=== PATIENT | female | born 1945 | race Hispanic/Latino ===

== ENCOUNTER 2019-06-16 09:14 | Emergency (ER) | payer OTHER ==
--- OUTSIDE RECORDS SUMMARY | 2019-06-16 09:15 | XMS REPORT ---
:1945 Author Organization eClinicalWorks Care Team Providers Name Role Phone Dexter Iván Provider Role Unavailable Allergies, Adverse Reactions, Alerts Substance Reaction Event Type N.K.D.A. Info Not Available Non Drug Allergy Problems Problem Type Condition Code Onset Dates Condition Status Assessment Body mass index (BMI) of 40.0-44.9 Z68.41 Active in adult Assessment Primary osteoarthritis of left knee M17.12 Active Assessment Left sided sciatica M54.32 Active Assessment Morbid (severe) obesity due to E66.01 Active excess calories Problem Morbid (severe) obesity due to E66.01 Active excess calories Problem Primary osteoarthritis of left knee M17.12 Active Problem Pain, joint, knee, left M25.562 Active Assessment Pain, joint, knee, left M25.562 Active Problem Left sided sciatica M54.32 Active Problem Body mass index (BMI) of 40.0-44.9 Z68.41 Active in adult Medications Medication Code System Code Instructions Start Date End Date Status Dosage Amlodipine ND 0 Active not defined Besylate Lisinopril [facility] 33690-797 Active not defined 1-01 Meclizine HCl [facility] 59644-627 Active not defined 6-10 Omeprazole [facility] 37128-338 Active not defined 2-55 Results No Known Results Summary Purpose eClinicalWorks Submission
--- OUTSIDE RECORDS SUMMARY | 2019-06-16 09:16 | XMS REPORT ---
:1945 Author Organization eClinicalWorks Care Team Providers Name Role Phone Dexter Iván Provider Role Unavailable Allergies, Adverse Reactions, Alerts Substance Reaction Event Type N.K.D.A. Info Not Available Non Drug Allergy Problems Problem Type Condition Code Onset Dates Condition Status Assessment Left sided sciatica M54.32 Active Assessment Pain, joint, knee, left M25.562 Active Assessment Primary osteoarthritis of left knee M17.12 Active Assessment Morbid (severe) obesity due to E66.01 Active excess calories Assessment Body mass index (BMI) of 40.0-44.9 Z68.41 Active in adult Problem Morbid (severe) obesity due to E66.01 Active excess calories Problem Primary osteoarthritis of left knee M17.12 Active Problem Pain, joint, knee, left M25.562 Active Assessment Pain in joint of left hip M25.552 Active Problem Left sided sciatica M54.32 Active Problem Body mass index (BMI) of 40.0-44.9 Z68.41 Active in adult Medications Medication Code System Code Instructions Start Date End Date Status Dosage Omeprazole [facility] 09740-976 Active not defined 2-55 Lisinopril [facility] 01432-530 Active not defined 1-01 Meclizine HCl [facility] 65311-334 Active not defined 6-10 Amlodipine ND 0 Active not defined Besylate Results No Known Results Summary Purpose eClinicalWorks Submission
[2019-06-16] MEDS ORDERED: MECLIZINE HCL 12.5 MG TAB ONE (09:56)
[2019-06-16] MEDS ORDERED: NA CHLORIDE 0.9% 1,000 ML ONE (09:57)
[2019-06-16] MEDS ORDERED: ONDANSETRON 4 MG/2 ML VIAL ONE (09:57)
[2019-06-16 10:05] LABS: Absolute Lymphocytes (CBC) 1.8 K/uL (0.7-4.9); Basophils % 0.9 % (0-1.3); Hematocrit 38.5 % (36.0-45.0); Lymphocytes % 39.2 % (15.3-44.8); MPV 9.5 fL (7.6-11.3); RBC Red Blood Cell Count 4.46 M/uL (3.86-4.86)
[2019-06-16 10:32] LABS: Protime INR 1.01
[2019-06-16 10:46] LABS: ALT/SGPT 18 U/L (12-78); AST/SGOT 21 U/L (15-37); Albumin 3.1 g/dL (3.4-5.0); Alkaline Phosphatase 81 U/L (45-117); BUN Blood Urea Nitrogen 23 mg/dL (7-18); Bicarbonate 26 mmol/L (21-32); Bilirubin Direct 0.1 mg/dL (0-0.2); Bilirubin Total 0.4 mg/dL (0.2-1.0); CKMB Creatine Kinase MB < 1.0 ng/mL (0.3-3.6); Creatine Phosphokinase 84 U/L (26-192); Glucose Level 105 mg/dL (74-106); Lipase 75 U/L (73-393); Magnesium 1.8 mg/dL (1.8-2.4); Potassium 4.3 mmol/L (3.5-5.1); Protein, Total 6.8 g/dL (6.4-8.2); Sodium Level 142 mmol/L (136-145); Troponin (Emerg Dept Use Only) < 0.02 ng/mL (0.0-0.045)
[2019-06-16] MEDS ORDERED: PROMETHAZINE INJ 25 MG/ML AMP ONE (10:47)
[2019-06-16] MEDS ORDERED: DIAZEPAM 10 MG/2 ML INJ SYRINGE ONE (10:48)
--- NOTE | 2019-06-16 11:19 | RAD REPORT ---
EXAM DESCRIPTION: CT - Head Brain Wo Cont - 06/16/2019 11:08 am CLINICAL HISTORY: Hypotension, weakness and dizziness, syncope, COMPARISON: CT head January 2015 TECHNIQUE: Axial 5 mm thick images of the head were obtained without IV contrast. All CT scans are performed using dose optimization technique as appropriate and may include automated exposure control or mA/KV adjustment according to patient size. FINDINGS: No intracranial hemorrhage, mass, edema or shift of mid-line structures. No acute infarcti on changes seen. No cortical edema or sulcal effacement. Little to no atrophy and chronic ischemic ch anges evident. Ventricles are normal. Intracranial findings are similar to comparison. Mastoid air cells are not pneumatized. Partially visualized paranasal sinuses are clear. No acute bony findings. IMPRESSION: Negative non-contrast CT head examination for acute finding No significant change from the 2014 comparison.
[2019-06-16 12:23] LABS: Urine Blood NEGATIVE (NEG); Urine Glucose NEGATIVE (NEG); Urine Specific Gravity 1.015 (1.005-1.030); Urine pH 7.5 (5.0-7.0)
[2019-06-16 12:24] LABS: Urine Protein NEGATIVE (NEG)
--- NOTE | 2019-06-16 12:28 | ER ---
Nurse's Notes [facility] Name: Brenda Madrid Age: 73 yrs Sex: Female : 1945 Arrival Date: 06/16/2019 Time: 09:16 Bed 3 Private MD: Franco Davis V Diagnosis: Cystitis, unspecified without hematuria Presentation: 06/16 09:22 Presenting complaint: Significant other states: pt started feeling bad about 30 minutes iw ago, was feeling like she was going to pass out and dizzy and she vomited, her BP was low at home. Transition of care: patient was not received from another setting of care. Onset of symptoms was June 16, 2019. Risk Assessment: Do you want to hurt yourself or someone else? Patient reports no desire to harm self or others. Initial Sepsis Screen: Does the patient meet any 2 criteria? No. Patient's initial sepsis screen is negative. Does the patient have a suspected source of infection? No. Patient's initial sepsis screen is negative. Care prior to arrival: None. 09:22 Method Of Arrival: Wheelchair iw 09:22 Acuity: RONALDO 2 iw Historical: - Allergies: 09:24 No Known Allergies; iw - Home Meds: 09:24 None [Active]; iw - PSHx: 09:24 ; Cholecystectomy; iw - Social history:: Patient/guardian denies using alcohol, street drugs, The patient lives with family. - Ebola Screening: : Patient negative for fever greater than or equal to 101.5 degrees Fahrenheit, and additional compatible Ebola Virus Disease symptoms Patient denies exposure to infectious person Patient denies travel to an Ebola-affected area in the 21 days before illness onset No symptoms or risks identified at this time. - Family history:: not pertinent. Screenin:48 Abuse screen: Denies threats or abuse. Nutritional screening: No deficits noted. em Tuberculosis screening: No symptoms or risk factors identified. Fall Risk None identified. Assessment: 09:50 General: Appears in no apparent distress. uncomfortable, Behavior is calm, cooperative, em Denies fever. Pain: Complains of pain in lumbar area Pain currently is 0 out of 10 on a pain scale. at worst was 10 out of 10 on a pain scale. Pain began 30 min ago. Neuro: Level of Consciousness is awake, alert, obeys commands, Oriented to person, place, time, situation, Appropriate for age Reports dizziness, a syncopal episode Denies headache. Cardiovascular: Capillary refill < 3 seconds Patient's skin is warm and dry. Rhythm is sinus rhythm. Respiratory: Airway is patent Respiratory effort is even, unlabored, Respiratory pattern is regular, symmetrical. GI: Reports nausea, vomiting, Patient currently denies abdominal pain. : Denies burning with urination. Derm: Skin is intact, is thin, Skin is pink, warm \T\ dry. Musculoskeletal: Capillary refill < 3 seconds, Range of motion: intact in all extremities. 10:54 Reassessment: Pt is drowsy after Phenergan and Valium administration. Resting with eyes aa5 closed, family at bedside. Side rails x 2. . 11:00 Reassessment: Patient appears in no apparent distress at this time. wheeled to CT via em stretcher. 12:00 Reassessment: Patient appears in no apparent distress at this time. Patient and/or em family updated on plan of care and expected duration. Pain level reassessed. Patient is alert, oriented x 3, equal unlabored respirations, skin warm/dry/pink. reports feeling better, requesting to go home. Vital Signs: 09:24 BP 120 / 52; Pulse 66; Resp 16; Pulse Ox 95% on R/A; Weight 99.34 kg; iw 10:50 BP 120 / 62; Pulse 69; Resp 18 S; Pulse Ox 97% on R/A; aa5 10:54 Resp 14 S; Pulse Ox 88% on R/A; aa5 10:55 Pulse Ox 94% on 4 lpm NC; aa5 12:00 BP 132 / 72; Pulse 65; Resp 18; Pulse Ox 100% on R/A; Pain 0/10; em ED Course: 09:16 Patient arrived in ED. mr 09:16 Franco Davis MD is Private Physician. mr 09:23 Triage completed. iw 09:27 Davina Lnog MD is Attending Physician. ma2 09:29 Bj Thomas, KEM is Primary Nurse. em 09:45 Initial lab(s) drawn, by me, sent to lab. Inserted saline lock: 22 gauge in right em forearm, using aseptic technique. Blood collected. 09:48 Arm band placed on. em 09:48 Patient has correct armband on for positive identification. Placed in gown. Bed in low em position. Call light in reach. Adult w/ patient. shelter monitor on. Pulse ox on. NIBP on. 11:08 CT Head Brain wo Cont In Process Unspecified. EDMS 12:38 No provider procedures requiring assistance completed. IV discontinued, intact, em bleeding controlled, No redness/swelling at site. Pressure dressing applied. Administered Medications: 10:00 Drug: NS 0.9% 1000 ml Route: IV; Rate: 1 bolus; Site: right forearm; em 10:01 Drug: Zofran 4 mg Route: IVP; Site: right forearm; em 10:22 Follow up: Response: No adverse reaction; Nausea unchanged em 10:22 Drug: Zofran 4 mg Route: IVP; Site: right forearm; em 10:49 Drug: Phenergan 25 mg Route: IVP; Site: right forearm; aa5 10:50 Drug: Valium 2 mg Route: IVP; Site: right forearm; aa5 10:52 Drug: Meclizine 50 mg Route: PO; aa5 Outcome: 12:27 Discharge ordered by . ma2 12:38 Discharged to home via wheelchair, with family. em 12:38 Condition: good 12:38 Discharge instructions given to patient, family, Instructed on discharge instructions, follow up and referral plans. medication usage, Demonstrated understanding of instructions, follow-up care, medications, Prescriptions given X 3. 12:41 Patient left the ED. em Signatures: Dispatcher [employer] WILBERTOKS MikeLilly Edgar, RN RN em Williams, Irene, RN RN iw Calderon, Audri, RN RN aa5 Alzahri, Mohammad, MD MD ma2
--- NOTE | 2019-06-16 12:28 | EDPHYS ---
Physician Documentation [facility] Name: Brenda Madrid Age: 73 yrs Sex: Female : 1945 Arrival Date: 06/16/2019 Time: 09:16 Bed 3 Private MD: Franco Davis V ED Physician Davina Long HPI: 06/16 12:26 This 73 yrs old Female presents to ER via Wheelchair with complaints of Blood ma2 Pressure Problem. 12:26 Onset: The symptoms/episode began/occurred gradually, 2 hour(s) ago. Severity of ma2 symptoms: At their worst the symptoms were mild in the emergency department the symptoms have resolved. The patient has experienced similar episodes in the past. Historical: - Allergies: :24 No Known Allergies; iw - Home Meds: :24 None [Active]; iw - PSHx: :24 ; Cholecystectomy; iw - Social history:: Patient/guardian denies using alcohol, street drugs, The patient lives with family. - Ebola Screening: : Patient negative for fever greater than or equal to 101.5 degrees Fahrenheit, and additional compatible Ebola Virus Disease symptoms Patient denies exposure to infectious person Patient denies travel to an Ebola-affected area in the 21 days before illness onset No symptoms or risks identified at this time. - Family history:: not pertinent. ROS: 12:26 Constitutional: Negative for fever, chills, and weight loss. ma2 12:26 All other systems are negative. Exam: 12:26 Constitutional: This is a well developed, well nourished patient who is awake, alert, ma2 and in no acute distress. Head/Face: Normocephalic, atraumatic. Eyes: Pupils equal round and reactive to light, extra-ocular motions intact. Lids and lashes normal. Conjunctiva and sclera are non-icteric and not injected. Cornea within normal limits. Periorbital areas with no swelling, redness, or edema. ENT: Nares patent. No nasal discharge, no septal abnormalities noted. Tympanic membranes are normal and external auditory canals are clear. Oropharynx with no redness, swelling, or masses, exudates, or evidence of obstruction, uvula midline. Mucous membranes moist. Neck: Trachea midline, no thyromegaly or masses palpated, and no cervical lymphadenopathy. Supple, full range of motion without nuchal rigidity, or vertebral point tenderness. No Meningismus. Chest/axilla: Normal chest wall appearance and motion. Nontender with no deformity. No lesions are appreciated. Cardiovascular: Regular rate and rhythm with a normal S1 and S2. No gallops, murmurs, or rubs. Normal PMI, no JVD. No pulse deficits. Respiratory: Lungs have equal breath sounds bilaterally, clear to auscultation and percussion. No rales, rhonchi or wheezes noted. No increased work of breathing, no retractions or nasal flaring. Abdomen/GI: Soft, non-tender, with normal bowel sounds. No distension or tympany. No guarding or rebound. No evidence of tenderness throughout. MS/ Extremity: Pulses equal, no cyanosis. Neurovascular intact. Full, normal range of motion. Neuro: Awake and alert, GCS 15, oriented to person, place, time, and situation. Cranial nerves II-XII grossly intact. Motor strength 5/5 in all extremities. Sensory grossly intact. Cerebellar exam normal. Normal gait. Vital Signs: 09:24 BP 120 / 52; Pulse 66; Resp 16; Pulse Ox 95% on R/A; Weight 99.34 kg; iw 10:50 BP 120 / 62; Pulse 69; Resp 18 S; Pulse Ox 97% on R/A; aa5 10:54 Resp 14 S; Pulse Ox 88% on R/A; aa5 10:55 Pulse Ox 94% on 4 lpm NC; aa5 12:00 BP 132 / 72; Pulse 65; Resp 18; Pulse Ox 100% on R/A; Pain 0/10; em MDM: 09:27 Patient medically screened. ma2 12:26 Differential Diagnosis vertigo and headache and low bp, felt better, sympotms resolvec ma2 . Data reviewed: vital signs, nurses notes. Counseling: I had a detailed discussion with the patient and/or guardian regarding: the historical points, exam findings, and any diagnostic results supporting the discharge/admit diagnosis, the presence of at least one elevated blood pressure reading (>120/80) during this emergency department visit, the need for outpatient follow up. Response to treatment: the patient's symptoms have markedly improved after treatment. 06/16 09:49 Order name: Basic Metabolic Panel; Complete Time: 11:44 ma2 19 09:49 Order name: CBC with Diff; Complete Time: 10:42 06/16 09:49 Order name: Ckmb; Complete Time: 11:44 06/16 09:49 Order name: CPK; Complete Time: 11:44 06/16 09:49 Order name: Hepatic Function; Complete Time: 11:44 06/16 09:49 Order name: Lipase; Complete Time: 11:44 06/16 09:49 Order name: CT Head Brain wo Cont; Complete Time: 11:44 06/16 09:49 Order name: Magnesium; Complete Time: 11:44 06/16 09:49 Order name: Protime (+inr); Complete Time: 10:42 06/16 09:49 Order name: Ptt, Activated; Complete Time: 10:42 06/16 09:49 Order name: Troponin (emerg Dept Use Only); Complete Time: 11:44 06/16 12:20 Order name: Urine Dipstick--Ancillary (enter results) lt1 06/16 09:49 Order name: EKG; Complete Time: 09:50 06/16 09:49 Order name: Cardiac monitoring; Complete Time: 09:50 06/16 09:49 Order name: EKG - Nurse/Tech; Complete Time: 09:50 06/16 09:49 Order name: IV Saline Lock; Complete Time: 09:50 06/16 09:49 Order name: Labs collected and sent; Complete Time: 09:50 06/16 09:49 Order name: NPO; Complete Time: 09:50 06/16 09:49 Order name: O2 Per Protocol; Complete Time: 09:50 06/16 09:49 Order name: O2 Sat Monitoring; Complete Time: 09:50 ma Administered Medications: 10:00 Drug: NS 0.9% 1000 ml Route: IV; Rate: 1 bolus; Site: right forearm; em 10:01 Drug: Zofran 4 mg Route: IVP; Site: right forearm; em 10:22 Follow up: Response: No adverse reaction; Nausea unchanged em 10:22 Drug: Zofran 4 mg Route: IVP; Site: right forearm; em 10:49 Drug: Phenergan 25 mg Route: IVP; Site: right forearm; aa5 10:50 Drug: Valium 2 mg Route: IVP; Site: right forearm; aa5 10:52 Drug: Meclizine 50 mg Route: PO; aa5 Disposition: 06/16/19 12:27 Discharged to Home. Impression: Cystitis, unspecified without hematuria. - Condition is Stable. - Discharge Instructions: Urinary Tract Infection, Adult. - Prescriptions for Meclizine 25 mg Oral Tablet - take 1 tablet by ORAL route every 8 hours As needed; 30 tablet. Zofran 4 mg Oral Tablet - take 1 tablet by ORAL route every 12 hours As needed; 20 tablet. Bactrim DS 800- 160 mg Oral Tablet - take 1 tablet by ORAL route every 12 hours for 5 days; 10 tablet. - Medication Reconciliation Form, Thank You Letter, Antibiotic Education, Prescription Opioid Use form. - Follow up: Private Physician; When: Tomorrow; Reason: Continuance of care. Signatures: Dispatcher [employer] Bj Smith RN RN em Williams, Irene, RN RN iw Calderon, Audri, RN RN aa5 Davina Long MD MD [id number] Corrections: (The following items were deleted from the chart) 11:57 09:49 Urine Dipstick-Ancillary ordered. [facility] 11:57 11:44 Price ordered. [facility] 12:41 12:27 06/16/2019 12:27 Discharged to Home. Impression: Cystitis, unspecified without em hematuria. Condition is Stable. Forms are Medication Reconciliation Form, Thank You Letter, Antibiotic Education, Prescription Opioid Use. Follow up: Private Physician; When: Tomorrow; Reason: Continuance of care. ma
[2019-06-16 13:27] VITALS: BP 132/72; O2SAT 100
--- NOTE | 2019-06-17 08:49 | EKG ---
Test Date: 2019-06-16 Test Time: 09:44:18 Court Magistrate: BEV MEASUREMENT RESULTS: Intervals: Rate: 59 DC: 156 QRSD: 84 QT: 428 QTc: 423 [place]: P: 58 DC: 156 QRS: 7 T: 44 INTERPRETIVE STATEMENTS: Sinus bradycardia Otherwise normal ECG Compared to ECG 02/16/2015 06:51:55 Sinus rhythm no longer present Electronically Signed On 06-17-19 08:48:36 [employer] by Shane Velazquez
== END 2019-06-16 12:41 | disposition home or self-care (01) ==
LOC: ER 09:14
DX: N30.90 Cystitis, unspecified without hematuria (principal)
CPT/HCPCS: 93005; 85025; 80048; 36415; 83735; 82550; 85610; 80076; 85730; 81003; 84484; 82553; 83690; 70450; 96375; 96374; 99284; J2550; J3360; J7030; J2405

== ENCOUNTER 2019-06-19 15:59 | Observation (INO) | payer OTHER ==
--- OUTSIDE RECORDS SUMMARY | 2019-06-19 16:22 | XMS REPORT ---
[...] Start Date End Date Status Dosage Omeprazole [facility] 08572-350 Active not defined 2-55 Lisinopril [facility] 33041-895 Active not defined 1-01 Meclizine HCl [facility] 78861-575 Active not defined 6-10 Amlodipine ND 0 Active not defined Besylate Results No Known Results Summary Purpose eClinicalWorks Submission
--- OUTSIDE RECORDS SUMMARY | 2019-06-19 16:22 | XMS REPORT ---
[...] ND 0 Active not defined Besylate Lisinopril [facility] 57631-520 Active not defined 1-01 Meclizine HCl [facility] 62997-441 Active not defined 6-10 Omeprazole [facility] 36056-311 Active not defined 2-55 Results No Known Results Summary Purpose eClinicalWorks Submission
[2019-06-19] MEDS ORDERED: DIPHENHYDRAMINE 25 MG TAB/CAP PO PRN (16:44)
[2019-06-19] MEDS ORDERED: LOPERAMIDE HCL 2 MG CAPSULE PO PRN (16:44)
[2019-06-19] MEDS ORDERED: ONDANSETRON 4 MG (ODT) TAB PO PRN (16:44)
[2019-06-19] MEDS ORDERED: POLYETHYL GLY 3350 17 GM/DOSE PO PRN (16:44)
[2019-06-19] MEDS ORDERED: ACETAMINOPHEN 325 MG TABLET PO PRN (16:44)
[2019-06-19 17:47] LABS: Absolute Lymphocytes (CBC) 1.6 K/uL (0.7-4.9); Basophils % 0.9 % (0-1.3); Hematocrit 38.6 % (36.0-45.0); Lymphocytes % 30.8 % (15.3-44.8); MPV 9.4 fL (7.6-11.3); RBC Red Blood Cell Count 4.47 M/uL (3.86-4.86)
[2019-06-19 18:28] LABS: BUN Blood Urea Nitrogen 18 mg/dL (7-18); Bicarbonate 22 mmol/L (21-32); Glucose Level 90 mg/dL (74-106); Magnesium 1.9 mg/dL (1.8-2.4); NT PRO-BNP 118 pg/mL (<125); Phosphorus 1.6 mg/dL (2.5-4.9); Potassium 3.8 mmol/L (3.5-5.1); Sodium Level 142 mmol/L (136-145); Troponin I < 0.02 ng/mL (0.0-0.045)
--- NOTE | 2019-06-19 19:21 | RAD REPORT ---
EXAM DESCRIPTION: CT - Chest For Pe Angio - 06/19/2019 6:56 pm CLINICAL HISTORY: dyspnea, chest pain COMPARISON: No comparisons TECHNIQUE: Dynamically enhanced 3 mm thick images of the chest were obtained during administration o f approximately 150mL Isovue 370 IV contrast. Coronal and oblique MIP reconstruction images were gene rated and reviewed. Exam utilizes a protocol to evaluate the pulmonary arterial tree. All CT scans are performed using dose optimization technique as appropriate and may include automated exposure control or mA/KV adjustment according to patient size. FINDINGS: No pulmonary emboli are identified. The aorta as imaged shows no acute or suspicious finding. No pericardial thickening or effusion. Mild cardiomegaly present. No infiltrate or mass in the lung parenchyma. No pleural effusion or pleural thickening. No mediastinal or hilar suspicious masses. No chest wall masses or abnormal axillary lymphadenopathy. IMPRESSION: No pulmonary emboli identified. Mild cardiomegaly is evident. No focal or acute lung parenchymal process seen.
[2019-06-19 19:30] LABS: Urine Appearance CLEAR; Urine Bilirubin NEGATIVE (NEG); Urine Blood NEGATIVE (NEG); Urine Color YELLOW; Urine Glucose NEGATIVE (NEG); Urine Protein NEGATIVE (NEG); Urine Specific Gravity 1.015 (1.005-1.030)
[2019-06-19 19:42] LABS: Urine Microscopic Reflex NO UMIC
[2019-06-19] MEDS ORDERED: PANTOPRAZOLE 40 MG INJ IVP ONE (20:01)
[2019-06-19] MEDS ORDERED: HYDROMORPHONE HCL 1 MG/ML INJ IV PRN (20:01)
[2019-06-19] MEDS ORDERED: HYDROMORPHONE HCL 1 MG/ML INJ IV ONE (20:02)
[2019-06-19] MEDS: carvediloL 6.25 MG TAB PO SCH (21:00)
[2019-06-19] MEDS: ENOXAPARIN 100 MG/ML SYR SQ SCH (21:06)
[2019-06-19 23:56] VITALS: BMI 38.8
[2019-06-20 07:08] LABS: Arterial Blood Carboxyhemoglob 1.1 % (0-1.5); Blood Gas Oxyhemoglobin 91.8 % (94-97); Blood O2 Saturation 93.5 % (92-98.5)
[2019-06-20] MEDS ORDERED: MECLIZINE HCL 12.5 MG TAB PO PRN (07:58)
[2019-06-20] MEDS: carvediloL 6.25 MG TAB PO SCH (09:05)
[2019-06-20] MEDS: ENOXAPARIN 100 MG/ML SYR SQ SCH (09:06)
--- NOTE | 2019-06-20 09:08 | RAD REPORT ---
EXAM DESCRIPTION: US - Extrem Venous W Compress [place] - 06/20/2019 8:51 am CLINICAL HISTORY: Leg pain and swelling COMPARISON: None. TECHNIQUE: Real-time sonographic evaluation of the bilateral lower extremity common femoral, superfi cial femoral, popliteal and posterior tibial veins was performed. FINDINGS: Normal compressibility, flow augmentation, phasic flow and spontaneous flow are identified in the left and right lower extremity common femoral, superficial femoral, popliteal and posterior t ibial veins. No intraluminal filling defects seen. IMPRESSION: No DVT in either lower extremity.
--- NOTE | 2019-06-20 09:19 | RAD REPORT ---
EXAM DESCRIPTION: CT - Abdomen Pelvis W Contrast - 06/20/2019 8:52 am CLINICAL HISTORY: FEVER , PAIN COMPARISON: CT ABD PELVIS W CONTRAST dated 02/28/2014 TECHNIQUE: Biphasic, helical CT imaging of the abdomen and pelvis was performed following 100 ml non -ionic IV contrast. Oral contrast was given. All CT scans are performed using dose optimization technique as appropriate and may include automated exposure control or mA/KV adjustment according to patient size. FINDINGS: No suspicious findings in the lung bases. Liver, spleen and pancreas show no suspicious findings. A few small low-density areas are present in the left lobe and inferior right lobe not clearly different from 2014. These are believed to be incid ental cysts. Gallbladder is absent. No biliary tree dilatation. Symmetric renal function is seen with no hydronephrosis or suspicious renal mass. No pyelonephritis o r acute parenchymal process. Contracted urinary bladder shows no suspicious finding. No adrenal abnor malities. Uterus and ovaries without suspicious finding. Small hiatal hernia is present. Contrast is present in the distal esophagus. This is probably reflux. No dilated large or small bowel. No active GI process seen. No free air, free fluid or inflammatory stranding. No peritoneal or retroperitoneal mass. A very small umbilical hernia is present similar to comparison. Asymmetric or prominent 2 centimeter oval area of increased soft tissue thickness is present along th e right labia majora or distal vaginal wall. This is slightly more prominent than 2014. CT assessment is limited in this region. Correlation can be made with CALCULATION CLERK examination. No suspicious bony findings. IMPRESSION: Contrast enhanced CT abdomen and pelvis showing no acute finding. Soft tissue mass or thickening along the distal right vaginal wall or right labia majora slightly mor e prominent than the 2014 study. This can be correlated with follow-up outpatient CALCULATION CLERK examination. Nonacute findings detailed in the body of the report.
--- NOTE | 2019-06-20 14:04 | ECHO ---
HEIGHT: 5 ft 0 in WEIGHT: 198 lb 12.8 oz DATE OF STUDY: 06/20/[address]: Franco Davis MD 2-DIMENSIONAL: YES M.MODE: YES DOPPLER: YES COLOR FLOW: YES TDS: NO PORTABLE: NO DEFINITY: NO BUBBLE STUDY: NO DIAGNOSIS: EDEMA/DYSPNEA CARDIAC HISTORY: CATHERIZATION: NO SURGERY: NO PROSTHETIC VALVE: NO PACEMAKER: NO MEASUREMENTS (cm) DIASTOLIC (NORMALS) SYSTOLIC (NORMALS) IVSd 1.0 (0.6-1.2) LA Diam 2.9 (1.9-4.0) LVEF 59% LVIDd 3.7 (3.5-5.7) LVIDs 2.5 (2.0-3.5) %FS 31% LVPWd 1.1 (0.6-1.2) Ao Diam 2.6 (2.0-3.7) 2 DIMENSIONAL ASSESSMENT: RIGHT ATRIUM: NORMAL LEFT ATRIUM: NORMAL RIGHT VENTRICLE: NORMAL LEFT VENTRICLE: NORMAL TRICUSPID VALVE: NORMAL MITRAL VALVE: NORMAL PULMONIC VALVE: NORMAL AORTIC VALVE: NORMAL PERICARDIAL EFFUSION: NONE AORTIC ROOT: NORMAL LEFT VENTRICULAR WALL MOTION: NORMAL DOPPLER/COLOR FLOW: NORMAL. COMMENTS: NORMAL 2D ECHO WITH DOPPLER. NO WALL MOTION ABNORMALITY. NO EFUSION. TECHNOLOGIST: TRENT ELDER
[2019-06-20 17:44] VITALS: BP 109/60; TEMP 97.5
--- NOTE | 2019-06-21 20:30 | DS ---
Date of Discharge: 06/20/2019 Final Diagnosis: Chest pain. Secondary Diagnosis: Morbid obesity. Hospital Course: Patient is 73 years old, comes in the office with some chest tightness and heavines s. We decided to admit her because she is high risk. She ruled out for NH. Her D-dimer was high, s o I did a CT pulmonary angiogram and venous Doppler in the legs, which were negative. She is dis[facility] in stable condition and is without any pain and she will be doing outpatient stress test with Dr. Harrell. Her echocardiogram in the hospital was normal. RVD/MODL Voice ID: [id number] Report ID: [id number]
[2019-06-24 03:39] LABS: HBsAG Nonreactive (Nonreactive)
== END 2019-06-20 18:40 | disposition home or self-care (01) ==
LOC: 2ND 16:19
PROVIDERS: ADMIT Internal Medicine; ATTEND Internal Medicine
DX: R07.9 Chest pain, unspecified (principal); E66.01 Morbid (severe) obesity due to excess calories; Z68.38 Body mass index [BMI] 38.0-38.9, adult; I10 Essential (primary) hypertension; M19.90 Unspecified osteoarthritis, unspecified site; E78.5 Hyperlipidemia, unspecified
CPT/HCPCS: 93306; 87040; 85025; 80048; 36415; 83735; 84100; 85610; 85379; 85730; 82652; 84443; 81003; 84484 ×3; 82607; 83880; 80074; 71275; 74177; 93970; 82805; Q9967; C9113; J1650 ×2; G0379; G0378 ×3; J1170

== ENCOUNTER 2020-01-11 12:48 | Emergency (ER) | payer OTHER ==
--- OUTSIDE RECORDS SUMMARY | 2020-01-11 12:50 | XMS REPORT | Continuity of Care Document ---
:1945 Author Organization [facility] t Address [address] [place] [address] Care Team Providers Name Role Phone Unavailable Unavailable Unavailable Problems Condition Condition Condition Status Onset Resolution Last Treating Co mments Source Name Details Category Date Date Treatment Clinician Date Body mass Body mass Problem Active [facility] index index [facility] - (BMI) of (BMI) of Mem[facility] a 40.0-44.9 40.0-44.9 l in adult in adult Outpat i ent Clinics Primary Primary Problem Active [facility] osteoarthr osteoarthr Joan kes - itis of itis of Memoria left knee left knee l Outpati ent Clinics Left sided Left sided Problem Active [facility] sciatica sciatica [facility] - [facility] Morbid Morbid Problem Active [facility] (severe) (severe) [facility] - obesity obesity Memoria due to due to l excess excess Outpati calories calories ent Clinics Pain, Pain, Problem Active [facility] joint, joint, [facility] - knee, left knee, left Me moria l Outpati ent Clinics Pain in Pain in Diagnosis Active [facility] t joint of joint of [facility] - left hip left hip [facility] a l Outpati ent Clinics Allergies, Adverse Reactions, Alerts This patient has no known allergies or adverse reactions. Medications Ordered Filled Start Stop Current Ordering Indication Dosage Frequency Signature Comments Components Source Medication Medication Date Date Medication? Clinician (SIG) Name Name Amlodipine Amlodipine Yes Iván not [facility] Besylate Besylate Dexter defined Joan kes - [facility] Lisinopril Lisinopril Yes Iván not [facility] Dexter defined [facility] Meclizine Meclizine Yes Iván not [facility] HCl HCl Dexter defined [facility] Omeprazole Omeprazole Yes Iván not [facility] Dexter defined [facility] Procedures This patient has no known procedures. Encounters Start End Encounter Admission Attending Care Care Encounter Source Date/Time Date/Time Type Type Clinicians Facility Department ID 2018-06-07 2018-06-07 Outpatient Morro Rodriguez [id number] [facility] [address] 08:00:00 08:00:00 t Bone Bone and [facility] - and [facility] 2018-05-10 2018-05-10 Outpatient Morro Rodriguez [id number] [facility] 08:00:00 08:00:00 t [facility] - and [facility] Results This patient has no known results.
--- NOTE | 2020-01-11 15:33 | EDPHYS ---
Physician Documentation [facility] Name: Brenda Madrid Age: 74 yrs Sex: Female : 1945 Arrival Date: 01/11/2020 Time: 12:50 Bed 2 Private MD: ED Physician Mario Elliott HPI: 01/10 13:52 This 74 yrs old Female presents to ER via EMS with complaints of Bloody nose, pm1 nausea, dry cough. 13:52 The patient or guardian reports cough, with no sputum. Onset: The symptoms/episode pm1 began/occurred 1 week(s) ago. Severity of symptoms: in the emergency department the symptoms are unchanged. Modifying factors: The symptoms are alleviated by nothing, the symptoms are aggravated by nothing. Associated signs and symptoms: Pertinent positives: nausea, body aches, nausea, Pertinent negatives: chest pain, diarrhea, fever, sore throat, vomiting, shortness of breath. The patient has not experienced similar symptoms in the past. Historical: - Allergies: 12:53 No Known Allergies; hb - PSHx: 12:53 ; Cholecystectomy; hb - Immunization history:: Adult Immunizations up to date. - Social history:: Smoking status: Patient denies any tobacco usage or history of. ROS: 13:52 Constitutional: Negative for fever, chills, and weight loss. pm1 13:52 Neck: Negative for injury, pain, and swelling, Cardiovascular: Negative for chest pain, palpitations, and edema. 13:52 Back: Negative for injury and pain, MS/Extremity: Negative for injury and deformity, Skin: Negative for injury, rash, and discoloration, Neuro: Negative for headache, weakness, numbness, tingling, and seizure. 13:52 ENT: Positive for bloody nose resolved, Negative for ear pain, sore throat. 13:52 Respiratory: Positive for cough, Negative for shortness of breath, sputum production, wheezing. 13:52 Abdomen/GI: Positive for nausea, Negative for abdominal pain, vomiting, diarrhea, constipation. Exam: 13:52 Constitutional: This is a well developed, well nourished patient who is awake, alert, pm1 and in no acute distress. Head/Face: Normocephalic, atraumatic. Eyes: Pupils equal round and reactive to light, extra-ocular motions intact. Lids and lashes normal. Conjunctiva and sclera are non-icteric and not injected. Cornea within normal limits. Periorbital areas with no swelling, redness, or edema. ENT: Nares patent. No nasal discharge, no septal abnormalities noted. Tympanic membranes are normal and external auditory canals are clear. Oropharynx with no redness, swelling, or masses, exudates, or evidence of obstruction, uvula midline. Mucous membranes moist. Neck: Trachea midline, no thyromegaly or masses palpated, and no cervical lymphadenopathy. Supple, full range of motion without nuchal rigidity, or vertebral point tenderness. No Meningismus. Chest/axilla: Normal chest wall appearance and motion. Nontender with no deformity. No lesions are appreciated. 13:52 Back: No spinal tenderness. No costovertebral tenderness. Full range of motion. Skin: Warm, dry with normal turgor. Normal color with no rashes, no lesions, and no evidence of cellulitis. MS/ Extremity: Pulses equal, no cyanosis. Neurovascular intact. Full, normal range of motion. 13:52 Cardiovascular: Exam negative for acute changes, Rate: normal, Rhythm: regular, Pulses: no pulse deficits are appreciated. 13:52 Respiratory: Exam negative for acute changes, respiratory distress, shortness of breath. 13:52 Abdomen/GI: Exam negative for acute changes, Inspection: abdomen appears normal, Palpation: abdomen is soft and non-tender, in all quadrants. 13:52 Neuro: Exam negative for acute changes, Orientation: is normal, Mentation: is normal, Motor: is normal, moves all fours. Vital Signs: 12:51 BP 146 / 86; Pulse 95; Resp 16; Temp 99.2(O); Pulse Ox 95% on R/A; Weight 65.77 kg; hb Height 5 ft. 3 in. (160.02 cm); Pain 0/10; 13:45 BP 135 / 81; Pulse 91; Resp 16; Pulse Ox 95% on R/A; hb 15:00 BP 136 / 84; Pulse 95; Resp 16; Pulse Ox 95% ; sv 12:51 Body Mass Index 25.68 (65.77 kg, 160.02 cm) hb MDM: 13:04 [facility] 15:32 Data reviewed: vital signs. Data interpreted: Pulse oximetry: on room air is 95 %. pm1 Interpretation: normal. Counseling: I had a detailed discussion with the patient and/or guardian regarding: the historical points, exam findings, and any diagnostic results supporting the discharge/admit diagnosis, lab results, the need for outpatient follow up, to return to the emergency department if symptoms worsen or persist or if there are any questions or concerns that arise at home. 01/10 13:20 Order name: COVID-19 pm1 01/10 13:20 Order name: Flu; Complete Time: 15:45 pm1 01/10 13:20 Order name: Strep; Complete Time: 15:45 pm1 01/10 13:20 Order name: Document PUI#; Complete Time: 13:30 pm1 01/10 13:20 Order name: Droplet/Contact Precautions; Complete Time: 13:29 pm1 01/10 15:13 Order name: Throat Culture [facility] 01/10 13:20 Order name: Labs collected and sent; Complete Time: 13:30 pm1 01/10 13:20 Order name: O2 Per Protocol; Complete Time: 13:29 pm1 Administered Medications: No medications were administered Disposition: 01/11/20 15:33 Discharged to Home. Impression: Acute upper respiratory infection, unspecified. - Condition is Stable. - Discharge Instructions: Upper Respiratory Infection, Adult, COVID-19. - Medication Reconciliation Form, Thank You Letter, Antibiotic Education, Prescription Opioid Use form. - Follow up: Emergency Department; When: As needed; Reason: Worsening of condition. Follow up: Private Physician; When: 2 - 3 days; Reason: Recheck today's complaints, Continuance of care, Re-evaluation by your physician. - Problem is new. - Symptoms have improved. - Notes: Covid results 2-3 days Addendum: 01/13/2020 08:12 Co-signature as Attending Physician, Mario Elliott MD I agree with the assessment and c cole plan of care. Signatures: Dispatcher [employer] Mario Ferro MD MD cha Hall, Patricia, RN RN Sinan Townsend, SUPERVISOR PHOTOSTAT SUPERVISOR PHOTOSTAT pm1 Edith Oh, KEM RN Corrections: (The following items were deleted from the chart) 01/10 13:39 13:20 [facility] [phone]/ ordered. pm1 eb 16:07 15:33 01/11/2020 15:33 Discharged to Home. Impression: Acute upper respiratory ph infection, unspecified. Condition is Stable. Forms are Medication Reconciliation Form, Thank You Letter, Antibiotic Education, Prescription Opioid Use. Follow up: Emergency Department; When: As needed; Reason: Worsening of condition. Follow up: Private Physician; When: 2 - 3 days; Reason: Recheck today's complaints, Continuance of care, Re-evaluation by your physician. Problem is new. Symptoms have improved. pm1
--- NOTE | 2020-01-11 15:33 | ER ---
Nurse's Notes [facility] Name: Brenda Madrid Age: 74 yrs Sex: Female : 1945 Arrival Date: 01/11/2020 Time: 12:50 Bed 2 Private MD: Diagnosis: Acute upper respiratory infection, unspecified Presentation: 01/10 12:51 Chief complaint: EMS states: Bloody nose and nausea today, dry cough x 1 week. Denies hb fever/diarrhea/pain/SOB. Coronavirus screen: cough unrelated to allergies, nausea, Client presents with at least one sign or symptom that may indicate coronavirus-19. Standard/surgical mask placed on the client. Provider contacted for isolation considerations. Ebola Screen: No symptoms or risks identified at this time. Initial Sepsis Screen: Does the patient meet any 2 criteria? No. Patient's initial sepsis screen is negative. Does the patient have a suspected source of infection? No. Patient's initial sepsis screen is negative. Risk Assessment: Do you want to hurt yourself or someone else? Patient reports no desire to harm self or others. Onset of symptoms was January 11, 2020. 12:51 Method Of Arrival: EMS: [facility] 12:51 Acuity: RONALDO 3 hb Triage Assessment: 12:53 General: Appears in no apparent distress. Behavior is calm, cooperative. Pain: Denies hb pain. EENT: No signs and/or symptoms were reported regarding the EENT system. Neuro: Level of Consciousness is awake, alert, obeys commands, Oriented to person, place, time, situation. Cardiovascular: Patient's skin is warm and dry. Respiratory: Reports cough that is dry, Respiratory effort is even, unlabored, Respiratory pattern is regular, symmetrical. GI: Reports nausea. : No signs and/or symptoms were reported regarding the genitourinary system. Derm: Skin is pink, warm \T\ dry. Musculoskeletal: No signs and/or symptoms reported regarding the musculoskeletal system. Historical: - Allergies: 12:53 No Known Allergies; hb - PSHx: 12:53 ; Cholecystectomy; hb - Immunization history:: Adult Immunizations up to date. - Social history:: Smoking status: Patient denies any tobacco usage or history of. Screenin:54 Abuse screen: Denies threats or abuse. Denies injuries from another. Nutritional hb screening: No deficits noted. Tuberculosis screening: No symptoms or risk factors identified. Fall Risk None identified. Assessment: 12:54 General: SEE TRIAGE. hb 13:22 Reassessment: Point of Contact (Daughter): Kelly Reinoso [phone]. 14:28 Reassessment: Patient appears in no apparent distress at this time. Patient and/or hb family updated on plan of care and expected duration. Pain level reassessed. Patient is alert, oriented x 3, equal unlabored respirations, skin warm/dry/pink. 15:27 Reassessment: Patient appears in no apparent distress at this time. Patient and/or hb family updated on plan of care and expected duration. Pain level reassessed. Patient is alert, oriented x 3, equal unlabored respirations, skin warm/dry/pink. Vital Signs: 12:51 BP 146 / 86; Pulse 95; Resp 16; Temp 99.2(O); Pulse Ox 95% on R/A; Weight 65.77 kg; hb Height 5 ft. 3 in. (160.02 cm); Pain 0/10; 13:45 BP 135 / 81; Pulse 91; Resp 16; Pulse Ox 95% on R/A; hb 15:00 BP 136 / 84; Pulse 95; Resp 16; Pulse Ox 95% ; sv 12:51 Body Mass Index 25.68 (65.77 kg, 160.02 cm) hb ED Course: 12:50 Patient arrived in ED. hb 12:53 Triage completed. hb 12:53 Arm band placed on. hb 12:54 Patient has correct armband on for positive identification. Bed in low position. Call hb light in reach. Side rails up X 1. 12:59 Sinan Kat, AIDA is PHCP. pm1 12:59 Mario Elliott MD is Attending Physician. pm1 13:03 Edith Oh, KEM is Primary Nurse. hb 16:01 No provider procedures requiring assistance completed. Patient did not have IV access hb during this emergency room visit. Administered Medications: No medications were administered Outcome: 15:33 Discharge ordered by . pm1 16:01 Discharged to home via wheelchair. hb 16:01 Condition: stable 16:01 Discharge instructions given to patient, Instructed on discharge instructions, follow up and referral plans. medication usage, Demonstrated understanding of instructions, follow-up care, medications. 16:07 Patient left the ED. ph Signatures: Mariya Welch, RN RN sv Brittany Johansen RN RN ss Tanja Leahy RN RN Sinan Kat, MATERIAL ANALYST MATERIAL ANALYST pm1 Edith Oh RN RN hb
[2020-01-11 16:16] VITALS: TEMP 99.2; O2SAT 95
[2020-01-11 16:19] VITALS: BP 136/84
== END 2020-01-11 16:07 | disposition home or self-care (01) ==
LOC: ER 12:48
DX: U07.1 COVID-19 (principal); J06.9 Acute upper respiratory infection, unspecified
CPT/HCPCS: 87070; 87081; 87804; 99283; U0002

== ENCOUNTER 2022-02-14 21:52 | Emergency (ER) | payer OTHER ==
--- OUTSIDE RECORDS SUMMARY | 2022-02-14 21:55 | XMS REPORT | Continuity of Care Document ---
:1945 Author Organization [facility] t Address [address] [place] [address] Care Team Providers Name Role Phone Unavailable Unavailable Unavailable Problems Condition Condition Condition Status Onset Resolution Last Treating Co mments Source Name Details Category Date Date Treatment Clinician Date Body mass Body mass Problem Active Com mon index index Spirit (BMI) of (BMI) of - [facility] 40.0-44.9 40.0-44.9 St in adult in [facility] Primary Primary Problem Active Common osteoarthr osteoarthr Sp cameron itis of itis of [facility] left knee left knee [facility] Left sided Left sided Problem Active C ommon sciatica sciatica [facility] Morbid Morbid Problem Active Common (severe) (severe) Spirit obesity obesity - [facility] due to due to St excess excess [facility] calories calories [facility] Pain, Pain, Problem Active Common joint, joint, Spirit knee, left knee, left - [facility] Pain in Pain in Diagnosis Active Commo n joint of joint of [facility] left hip left hip - [facility] Allergies, Adverse Reactions, Alerts This patient has no known allergies or adverse reactions. Medications Ordered Filled Start Stop Current Ordering Indication Dosage Frequency Signature Comments Components Source Medication Medication Date Date Medication? Clinician (SIG) Name Name Amlodipine Amlodipine Yes Iván not C ommon Besylate Besylate Isacc defined Sp cameron - [facility] Lisinopril Lisinopril Yes Iván not C ommon Dexter defined [facility] Meclizine Meclizine Yes Iván not Com mon HCl HCl Isacc defined [facility] Omeprazole Omeprazole Yes Iván not C ommon Dexter defined [facility] Procedures This patient has no known procedures. Encounters Start End Encounter Admission Attending Care Care Encounter Source Date/Time Date/Time Type Type Clinicians Facility Department ID 2018-06-07 2018-06-07 Outpatient Morro Rodriguez [id number] Common 08:00:00 08:00:00 t Bone Bone and Spiri t and Joint Joint - [facility] 2018-05-10 2018-05-10 Outpatient Morro Rodriguez [id number] Common 08:00:00 08:00:00 t Bone Bone and Spiri t and Joint Joint - [facility] Results This patient has no known results.
--- NOTE | 2022-02-14 23:13 | RAD REPORT ---
EXAM DESCRIPTION: RAD - Wrist Right 3 View - 02/14/2022 10:56 pm CLINICAL HISTORY: Right wrist pain status post injury FINDINGS: Mildly displaced impacted fracture distal radius. Mildly displaced impacted fracture distal ulna. No dislocation seen
--- NOTE | 2022-02-14 23:48 | ER ---
Nurse's Notes [facility] Name: Brenda Madrid Age: 76 yrs Sex: Female : 1945 Arrival Date: 02/14/2022 Time: 21:55 Bed 12 Private MD: Diagnosis: Fracture of lower end of radius;Displaced fracture of left ulna styloid process Presentation: 02/14 22:24 Chief complaint: Patient states: right hand /wrist pain swelling stumbled and hit right kl wrist on chair. Coronavirus screen: Vaccine status: Patient reports receiving the 2nd dose of the covid vaccine. Ebola Screen: Patient negative for fever greater than or equal to 101.5 degrees Fahrenheit, and additional compatible Ebola Virus Disease symptoms. Initial Sepsis Screen: Does the patient meet any 2 criteria? No. Patient's initial sepsis screen is negative. Does the patient have a suspected source of infection? No. Patient's initial sepsis screen is negative. Risk Assessment: Do you want to hurt yourself or someone else? Patient reports no desire to harm self or others. Onset of symptoms was February 14, 2022 at 21:00. 22:24 Method Of Arrival: Ambulatory 22:24 Acuity: RONALDO 4 kl Triage Assessment: 22:26 General: Appears uncomfortable, well groomed, well developed, Behavior is calm, kl cooperative. Pain: Complains of pain in right hand. EENT: No deficits noted. No signs and/or symptoms were reported regarding the EENT system. Neuro: No deficits noted. Cardiovascular: No deficits noted. Respiratory: No deficits noted. GI: No deficits noted. : No deficits noted. No signs and/or symptoms were reported regarding the genitourinary system. Derm: No deficits noted. No signs and/or symptoms reported regarding the dermatologic system. Musculoskeletal: Circulation, motion, and sensation intact. Capillary refill < 3 seconds, Range of motion: intact in right wrist. Injury Description: Bruise. Historical: - Allergies: 22:26 No Known Allergies; kl - Home Meds: 22:26 Aspirin Oral [Active]; kl - PMHx: 22:26 None; kl - PSHx: 22:26 None; kl - Immunization history:: Adult Immunizations up to date. - Social history:: Smoking status: Patient denies any tobacco usage or history of. Screenin:56 Abuse screen: Denies threats or abuse. Nutritional screening: No deficits noted. Tuberculosis screening: No symptoms or risk factors identified. Fall Risk None identified. Vital Signs: 22:24 BP 127 / 77; Pulse 62; Resp 18; Temp 97.5(TE); Pulse Ox 98% on R/A; Pain 8/10; kl 02/15 00:04 Resp 16; Pulse Ox 99% ; ED Course: 02/14 21:55 Patient arrived in ED. ja2 21:57 Holland Oliva DO is Attending Physician. ms3 22:26 Triage completed. kl 22:57 Wrist Right 3 View XRAY In Process Unspecified. EDMS 23:47 Irwin Viera MD is Referral Physician. ms3 23:56 Orthoglass splint: Sugar tong splint applied on right arm. Sling applied to right arm. kl 23:57 Patient has correct armband on for positive identification. 02/15 00:05 No provider procedures requiring assistance completed. Patient did not have IV access kl during this emergency room visit. 00:05 Splint applied. kl Administered Medications: No medications were administered Medication: 02/14 23:56 VIS not applicable for this client. Outcome: 23:47 Discharge ordered by . ms3 02/15 00:04 Discharged to home ambulatory. kl Condition: improved Discharge instructions given to patient, family, Instructed on discharge instructions, follow up and referral plans. splint care Demonstrated understanding of instructions, follow-up care, splint care. 00:06 Patient left the ED. Signatures: Dispatcher [employer] EDMS Laura Valenzuela RN RN kl Sims, Marcus, DO DO ms3 Mahsa Trimble ja2 Demetra Small RN RN [email or web address] Corrections: (The following items were deleted from the chart) 02/14 22:28 21:40 Inserted saline lock: 20 gauge in right antecubital area, using aseptic marlin technique. [email or web address]
--- NOTE | 2022-02-14 23:48 | EDPHYS ---
Physician Documentation [facility] Name: Brenda Madrid Age: 76 yrs Sex: Female : 1945 Arrival Date: 02/14/2022 Time: 21:55 Bed 12 Private MD: ED Physician Holland Oliva HPI: 02/14 23:47 This 76 yrs old Female presents to ER via Ambulatory with complaints of Wrist ms3 Injury, Fall Injury. 23:47 76-year-old female with no past medical history presents for fall 1 hour prior to ms3 arrival with right wrist pain. Patient states she missed a step causing her to fall. Patient states she is having moderate right wrist pain. Patient denies loss of consciousness, striking her head, or neck pain. Patient denies nausea or vomiting. Patient denies alleviating or inciting factors.. Historical: - Allergies: 22:26 No Known Allergies; kl - Home Meds: 22:26 Aspirin Oral [Active]; kl - PMHx: 22:26 None; kl - PSHx: 22:26 None; kl - Immunization history:: Adult Immunizations up to date. - Social history:: Smoking status: Patient denies any tobacco usage or history of. ROS: 23:47 Constitutional: Negative for fever, and chills. Neck: Negative for injury, pain, and ms3 swelling, Cardiovascular: Negative for chest pain, and palpitations. Respiratory: Negative for shortness of breath, cough, wheezing, and pleuritic chest pain, Abdomen/GI: Negative for abdominal pain, nausea, vomiting, diarrhea, and constipation. 23:47 MS/extremity: Positive for swelling, tenderness, of the right wrist. 23:47 All other systems are negative. Exam: 23:47 Constitutional: This is a well developed, well nourished patient who is awake, alert, ms3 and in no acute distress. Head/Face: Normocephalic, atraumatic. Neck: Trachea midline, no cervical lymphadenopathy. Supple, full range of motion without nuchal rigidity, or vertebral point tenderness. No Meningismus. Chest/axilla: Normal chest wall appearance and motion. Nontender with no deformity. Cardiovascular: Regular rate and rhythm with a normal S1 and S2. No gallops, murmurs, or rubs. Normal PMI, no JVD. No pulse deficits. Respiratory: Lungs have equal breath sounds bilaterally, clear to auscultation and percussion. No rales, rhonchi or wheezes noted. No increased work of breathing, no retractions or nasal flaring. Abdomen/GI: Soft, non-tender, with normal bowel sounds. No distension or tympany. No guarding or rebound. No evidence of tenderness throughout. Psych: Awake, alert, with orientation to person, place and time. Behavior, mood, and affect are within normal limits. 23:47 Musculoskeletal/extremity: Extremities: noted in the right wrist: contusion, ecchymosis. Vital Signs: 22:24 BP 127 / 77; Pulse 62; Resp 18; Temp 97.5(TE); Pulse Ox 98% on R/A; Pain 8/10; kl 02/15 00:04 Resp 16; Pulse Ox 99% ; kl MDM: 02/14 22:42 Patient medically screened. ms3 23:47 Differential diagnosis: closed fracture, contusion, tendonitis. Data reviewed: vital ms3 signs, nurses notes, radiologic studies, and as a result, I will discharge patient. ED course: Patient placed in sugar-tong splint by ED nurse. No signs of compartment syndrome were present. Patient to follow-up with Dr. Viera in 2 to 3 days for fracture care. Patient understands and agrees with plan. All questions were answered. Return precautions discussed include worsening symptoms, or any other concerns. 02/14 22:37 Order name: Wrist Right 3 View XRAY; Complete Time: 23:18 ms3 02/14 23:35 Order name: Splint - Sugar Tong - Forearm; Complete Time: 23:58 ms3 Administered Medications: No medications were administered Disposition Summary: 02/14/22 23:47 Discharge Ordered Location: Home ms3 Condition: Stable ms3 Diagnosis - Fracture of lower end of radius ms3 - Displaced fracture of left ulna styloid process ms3 Followup: ms3 - With: Irwin Viera MD - When: 1 - 2 days - Reason: Recheck today's complaints Forms: - Medication Reconciliation Form ms3 - Thank You Letter ms3 - Antibiotic Education ms3 - Prescription Opioid Use ms3 Signatures: Dispatcher [employer] EDMS Laura Valenzuela RN RN Holland Jackson, DO ms3
[2022-02-16 08:48] VITALS: BP 127/77; TEMP 97.5
[2022-02-16 09:21] VITALS: O2SAT 99
== END 2022-02-15 00:06 | disposition home or self-care (01) ==
LOC: ER 21:52
PROC: 2W3CX1Z Immobilization of Right Lower Arm using Splint (ICD-10-PCS; principal; 2022-02-15)
DX: S52.501A Unspecified fracture of the lower end of right radius, initial encounter for closed fracture (principal); S52.611A Displaced fracture of right ulna styloid process, initial encounter for closed fracture
CPT/HCPCS: 99283

== ENCOUNTER 2023-07-21 22:32 | Observation (INO) | payer OTHER ==
--- OUTSIDE RECORDS SUMMARY | 2023-07-21 22:36 | XMS REPORT | Continuity of Care Document ---
Author Name Unknown Address [address] [facility] [address] [place] [id number] [facility] thconnect Address [address] [facility]. [address] [place] [address] Care Team Providers Care Hoister Name Role Phone Franco Davis Attending Clinician Unavailable [email or web address]_S Attending Clinician Unavaila ble [email or web address]_S Admitting Clinician Unavaila ble Payers Payer Name Policy Type Policy Number Effective Date Expirati on Date Source [place] [id number] [facility] Problems Condition Name Condition Details Condition Category Status Onset Date Resolution Date Last Treatment Date Treating Clinician Comments Source [id number] Primary osteoarthr itis of left knee Problem [facility] [id number] Body mass index (BMI) of 40.0-44.9 in adult Problem [facility] [id number] Pain, joint, knee, left Problem [facility] [id number] Left sided sciatica Problem [facility] Social History Social Habit Start Date Stop Date Quantity Comments Source History of Tobacco Use [facility] Sex Assigned At [facility] Smoking Status Start Date Stop Date Source Never Smoker [facility] Medications Ordered Medication Name Filled Medication Name Start Date Stop Date Current Medication? Ordering Clinician Indication Dosage Frequency Signature (SIG) Comments Components Source Mobic 7.5 MG Mobic 7.5 MG 2021-05 00:00: 00 05-25 00:00 :00 No 1{table t} QD Mobic 7.5 MG Mobic 7.5 MG Mobic 7.5 MG 2021-05 00:00: 00 05-25 00:00 :00 No 1{table t} QD Mobic 7.5 MG Mobic 7.5 MG Mobic 7.5 MG 2021-05 00:00: 00 05-25 00:00 :00 No 1{table t} QD Mobic 7.5 MG HYDROcodone -Acetaminop hen 7.5-325 MG HYDROcodone -Acetaminop hen 7.5-325 MG 2021-0 02-21 00:00: 00 No 1{table t_as_ne eded} HYDROcodon e-Acetamin ophen 7.5-325 MG HYDROcodone -Acetaminop hen 7.5-325 MG HYDROcodone -Acetaminop hen 7.5-325 MG 2021-0 02-21 00:00: 00 No 1{table t_as_ne eded} HYDROcodon e-Acetamin ophen 7.5-325 MG HYDROcodone -Acetaminop hen 7.5-325 MG HYDROcodone -Acetaminop hen 7.5-325 MG 2-0 02-21 00:00: 00 No 1{table t_as_ne eded} HYDROcodon e-Acetamin ophen 7.5-325 MG HYDROcodone -Acetaminop hen 7.5-325 MG HYDROcodone -Acetaminop hen 7.5-325 MG 2-0 02-21 00:00: 00 No 1{table t_as_ne eded} HYDROcodon e-Acetamin ophen 7.5-325 MG HYDROcodone -Acetaminop hen 7.5-325 MG HYDROcodone -Acetaminop hen 7.5-325 MG 2-0 02-21 00:00: 00 No 1{table t_as_ne eded} HYDROcodon e-Acetamin ophen 7.5-325 MG HYDROcodone -Acetaminop hen 7.5-325 MG HYDROcodone -Acetaminop hen 7.5-325 MG 2022-0 9-26 00:00: 00 No 1{table t_as_ne eded} HYDROcodon e-Acetamin ophen 7.5-325 MG HYDROcodone -Acetaminop hen 7.5-325 MG HYDROcodone -Acetaminop hen 7.5-325 MG 2022-0 9-26 00:00: 00 No 1{table t_as_ne eded} HYDROcodon e-Acetamin ophen 7.5-325 MG HYDROcodone -Acetaminop hen 7.5-325 MG HYDROcodone -Acetaminop hen 7.5-325 MG 2022-0 9- 00:00: 00 No 1{table t_as_ne eded} HYDROcodon e-Acetamin ophen 7.5-325 MG HYDROcodone -Acetaminop hen 7.5-325 MG HYDROcodone -Acetaminop hen 7.5-325 MG 2022-0 - 00:00: 00 No 1{table t_as_ne eded} HYDROcodon e-Acetamin ophen 7.5-325 MG HYDROcodone -Acetaminop hen 7.5-325 MG HYDROcodone -Acetaminop hen 7.5-325 MG 2022-0 - 00:00: 00 No 1{table t_as_ne eded} HYDROcodon e-Acetamin ophen 7.5-325 MG HYDROcodone -Acetaminop hen 7.5-325 MG HYDROcodone -Acetaminop hen 7.5-325 MG 2022-0 - 00:00: 00 No 1{table t_as_ne eded} HYDROcodon e-Acetamin ophen 7.5-325 MG HYDROcodone -Acetaminop hen 7.5-325 MG HYDROcodone -Acetaminop hen 7.5-325 MG 2022-0 9- 00:00: 00 No 1{table t_as_ne eded} HYDROcodon e-Acetamin ophen 7.5-325 MG HYDROcodone -Acetaminop hen 7.5-325 MG HYDROcodone -Acetaminop hen 7.5-325 MG 2022-0 9-26 00:00: 00 No 1{table t_as_ne eded} HYDROcodon e-Acetamin ophen 7.5-325 MG HYDROcodone -Acetaminop hen 7.5-325 MG HYDROcodone -Acetaminop hen 7.5-325 MG 2022-0 9- 00:00: 00 No 1{table t_as_ne eded} HYDROcodon e-Acetamin ophen 7.5-325 MG HYDROcodone -Acetaminop hen 7.5-325 MG HYDROcodone -Acetaminop hen 7.5-325 MG 2-0 9- 00:00: 00 No 1{table t_as_ne eded} HYDROcodon e-Acetamin ophen 7.5-325 MG HYDROcodone -Acetaminop hen 7.5-325 MG HYDROcodone -Acetaminop hen 7.5-325 MG 2-0 9 00:00: 00 No 1{table t_as_ne eded} HYDROcodon e-Acetamin ophen 7.5-325 MG Bupivicaine [place] Bupivicaine [place] 2017-05 00:00: 00 No 2.5mg [facility] Depo Medrol (40mg) Depo Medrol (40mg) 2017-05 00:00: 00 No 40mg [facility] Bupivicaine [place] Bupivicaine [place] 2017-05 00:00: 00 No 2.5mg [facility] Depo Medrol (40mg) Depo Medrol (40mg) 2017-05 00:00: 00 No 40mg [facility] Bupivicaine [place] Bupivicaine [place] 2017-05 00:00: 00 No 2.5mg [facility] Depo Medrol (40mg) Depo Medrol (40mg) 2017-05 00:00: 00 No 40mg [facility] Bupivicaine [place] Bupivicaine [place] 2017-05 00:00: 00 No 2.5mg [facility] Depo Medrol (40mg) Depo Medrol (40mg) 2017-05 00:00: 00 No 40mg [facility] Bupivicaine [place] Bupivicaine [place] 2017-05 00:00: 00 No 2.5mg [facility] Depo Medrol (40mg) Depo Medrol (40mg) 2017-05 00:00: 00 No 40mg [facility] Bupivicaine [place] Bupivicaine [place] 2017-05 00:00: 00 No 2.5mg [facility] Depo Medrol (40mg) Depo Medrol (40mg) 2017-05 00:00: 00 No 40mg [facility] Bupivicaine [place] Bupivicaine [place] 2017-05 00:00: 00 No 2.5mg [facility] Depo Medrol (40mg) Depo Medrol (40mg) 2017-05 00:00: 00 No 40mg [facility] Bupivicaine [place] Bupivicaine [place] 2017-05 00:00: 00 No 2.5mg [facility] Bupivicaine [place] Bupivicaine [place] 2017-05 00:00: 00 No 2.5mg [facility] Depo Medrol (40mg) Depo Medrol (40mg) 2017-05 00:00: 00 No 40mg [facility] Depo Medrol (40mg) Depo Medrol (40mg) 2017-05 00:00: 00 No 40mg [facility] Bupivicaine [place] Bupivicaine [place] 2017-05 00:00: 00 No 2.5mg [facility] Depo Medrol (40mg) Depo Medrol (40mg) 2017-05 00:00: 00 No 40mg [facility] Bupivicaine [place] Bupivicaine [place] 2017-05 00:00: 00 No 2.5mg [facility] Depo Medrol (40mg) Depo Medrol (40mg) 2017-05 00:00: 00 No 40mg [facility] Bupivicaine [place] Bupivicaine [place] 2017-05 00:00: 00 No 2.5mg [facility] Depo Medrol (40mg) Depo Medrol (40mg) 2017-05 00:00: 00 No 40mg [facility] Bupivicaine [place] Bupivicaine [place] 2017-05 00:00: 00 No 2.5mg [facility] Depo Medrol (40mg) Depo Medrol (40mg) 2017-05 00:00: 00 No 40mg [facility] Bupivicaine [place] Bupivicaine [place] 2017-05 00:00: 00 No 2.5mg [facility] Depo Medrol (40mg) Depo Medrol (40mg) 2017-05 00:00: 00 No 40mg [facility] Bupivicaine [place] Bupivicaine [place] 2017-05 00:00: 00 No 2.5mg [facility] Depo Medrol (40mg) Depo Medrol (40mg) 2017-05 00:00: 00 No 40mg [facility] Bupivicaine [place] Bupivicaine [place] 2017-05 00:00: 00 No 2.5mg [facility] Depo Medrol (40mg) Depo Medrol (40mg) 2017-05 00:00: 00 No 40mg [facility] PriLOSEC PriLOSEC No PriLOSEC Lisinopril Lisinopril No Lisinopril Meclizine HCl Meclizine HCl No Meclizine HCl amLODIPine Besylate amLODIPine Besylate No amLODIPine Besylate Meclizine HCl Meclizine HCl No Meclizine HCl Omeprazole Omeprazole No Omeprazole Lisinopril Lisinopril No Lisinopril PriLOSEC PriLOSEC No PriLOSEC amLODIPine Besylate amLODIPine Besylate No amLODIPine Besylate Meclizine HCl Meclizine HCl No Meclizine HCl Omeprazole Omeprazole No Omeprazole Lisinopril Lisinopril No Lisinopril PriLOSEC PriLOSEC No PriLOSEC Lisinopril Lisinopril No Lisinopril Meclizine HCl Meclizine HCl No Meclizine HCl Omeprazole Omeprazole No Omeprazole amLODIPine Besylate amLODIPine Besylate No amLODIPine Besylate amLODIPine Besylate amLODIPine Besylate No amLODIPine Besylate PriLOSEC PriLOSEC No PriLOSEC Omeprazole Omeprazole No Omeprazole Lisinopril Lisinopril No Lisinopril Meclizine HCl Meclizine HCl No Meclizine HCl PriLOSEC PriLOSEC No PriLOSEC Omeprazole Omeprazole No Omeprazole amLODIPine Besylate amLODIPine Besylate No amLODIPine Besylate PriLOSEC PriLOSEC No PriLOSEC amLODIPine Besylate amLODIPine Besylate No amLODIPine Besylate Omeprazole Omeprazole No Omeprazole PriLOSEC PriLOSEC No PriLOSEC Meclizine HCl Meclizine HCl No Meclizine HCl Lisinopril Lisinopril No Lisinopril Lisinopril Lisinopril No Lisinopril amLODIPine Besylate amLODIPine Besylate No amLODIPine Besylate Omeprazole Omeprazole No Omeprazole PriLOSEC PriLOSEC No PriLOSEC Meclizine HCl Meclizine HCl No Meclizine HCl Lisinopril Lisinopril No Lisinopril Meclizine HCl Meclizine HCl No Meclizine HCl amLODIPine Besylate amLODIPine Besylate No amLODIPine Besylate Aspirin Aspirin No Aspirin PriLOSEC PriLOSEC No PriLOSEC Lisinopril Lisinopril No Lisinopril Meclizine HCl Meclizine HCl No Meclizine HCl Omeprazole Omeprazole No Omeprazole amLODIPine Besylate amLODIPine Besylate No amLODIPine Besylate Aspirin Aspirin No Aspirin PriLOSEC PriLOSEC No PriLOSEC Lisinopril Lisinopril No Lisinopril Meclizine HCl Meclizine HCl No Meclizine HCl Omeprazole Omeprazole No Omeprazole amLODIPine Besylate amLODIPine Besylate No amLODIPine Besylate Omeprazole Omeprazole No Omeprazole PriLOSEC PriLOSEC No PriLOSEC Lisinopril Lisinopril No Lisinopril Meclizine HCl Meclizine HCl No Meclizine HCl amLODIPine Besylate amLODIPine Besylate No amLODIPine Besylate Omeprazole Omeprazole No Omeprazole PriLOSEC PriLOSEC No PriLOSEC Lisinopril Lisinopril No Lisinopril Meclizine HCl Meclizine HCl No Meclizine HCl amLODIPine Besylate amLODIPine Besylate No amLODIPine Besylate Meclizine HCl Meclizine HCl No Meclizine HCl Omeprazole Omeprazole No Omeprazole Lisinopril Lisinopril No Lisinopril PriLOSEC PriLOSEC No PriLOSEC amLODIPine Besylate amLODIPine Besylate No amLODIPine Besylate Meclizine HCl Meclizine HCl No Meclizine HCl Omeprazole Omeprazole No Omeprazole Lisinopril Lisinopril No Lisinopril PriLOSEC PriLOSEC No PriLOSEC amLODIPine Besylate amLODIPine Besylate No amLODIPine Besylate Omeprazole Omeprazole No Omeprazole PriLOSEC PriLOSEC No PriLOSEC Lisinopril Lisinopril No Lisinopril Meclizine HCl Meclizine HCl No Meclizine HCl amLODIPine Besylate amLODIPine Besylate No amLODIPine Besylate Omeprazole Omeprazole No Omeprazole PriLOSEC PriLOSEC No PriLOSEC Lisinopril Lisinopril No Lisinopril Meclizine HCl Meclizine HCl No Meclizine HCl amLODIPine Besylate amLODIPine Besylate No amLODIPine Besylate Omeprazole Omeprazole No Omeprazole Amlodipine Besylate Amlodipine Besylate Yes Iván Dexter not defined [facility] Lisinopril Lisinopril Yes Iván Dexter not defined [facility] Meclizine HCl Meclizine HCl Yes Iván Dexter not defined [facility] Omeprazole Omeprazole Yes Iván Dexter not defined [facility] Vital Signs Vital Name Observation Time Observation Value Comments S ource height 2022-09-15 08:30:00 60 [in_i] [facility] weight 2022-09-15 08:30:00 199.8 [lb_av] Co [facility] bmi 2022-09-15 08:30:00 39.02 kg/m2 [facility] blood pressure systolic 2022-09-15 08:30:00 119 mm[Hg] [facility] blood pressure diastolic 2022-09-15 08:30:00 76 mm[Hg] [facility] height 2022-07-19 14:00:00 60 [in_i] [facility] weight 2022-07-19 14:00:00 196.4 [lb_av] Co [facility] temperature 2022-07-19 14:00:00 98.0 [degF] Com [facility] bmi 2022-07-19 14:00:00 38.35 kg/m2 [facility] blood pressure systolic 2022-07-19 14:00:00 120 mm[Hg] [facility] blood pressure diastolic 2022-07-19 14:00:00 84 mm[Hg] [facility] height 2022-05-16 08:30:00 60 [in_i] [facility] weight 2022-05-16 08:30:00 212 [lb_av] [facility] temperature 2022-05-16 08:30:00 97.2 [degF] Com [facility] bmi 2022-05-16 08:30:00 41.4 kg/m2 [facility] blood pressure systolic 2022-05-16 08:30:00 136 mm[Hg] [facility] blood pressure diastolic 2022-05-16 08:30:00 80 mm[Hg] [facility] height 2022-04-14 08:30:00 60 [in_i] [facility] weight 2022-04-14 08:30:00 212 [lb_av] [facility] temperature 2022-04-14 08:30:00 98.1 [degF] Com [facility] bmi 2022-04-14 08:30:00 41.4 kg/m2 [facility] blood pressure systolic 2022-04-14 08:30:00 129 mm[Hg] [facility] blood pressure diastolic 2022-04-14 08:30:00 81 mm[Hg] [facility] height 2022-03-14 14:30:00 60 [in_i] [facility] weight 2022-03-14 14:30:00 212 [lb_av] [facility] temperature 2022-03-14 14:30:00 98.2 [degF] Com [facility] bmi 2022-03-14 14:30:00 41.4 kg/m2 [facility] blood pressure systolic 2022-03-14 14:30:00 134 mm[Hg] [facility] blood pressure diastolic 2022-03-14 14:30:00 84 mm[Hg] [facility] height 2022-03-04 09:00:00 60 [in_i] [facility] weight 2022-03-04 09:00:00 212 [lb_av] [facility] temperature 2022-03-04 09:00:00 97.7 [degF] Com [facility] bmi 2022-03-04 09:00:00 41.4 kg/m2 [facility] blood pressure systolic 2022-03-04 09:00:00 126 mm[Hg] [facility] blood pressure diastolic 2022-03-04 09:00:00 82 mm[Hg] [facility] height 2022-02-17 10:00:00 60 [in_i] [facility] weight 2022-02-17 10:00:00 212.8 [lb_av] [facility] temperature 2022-02-17 10:00:00 97.9 [degF] Com [facility] bmi 2022-02-17 10:00:00 41.56 kg/m2 [facility] blood pressure systolic 2022-02-17 10:00:00 136 mm[Hg] [facility] blood pressure diastolic 2022-02-17 10:00:00 84 mm[Hg] [facility] Encounters Start Date/Time End Date/Time Encounter Type Admission Type Attending [facility] Facility Care Department Encounter ID Source 2022-07-19 16:26:00 Outpatient [facility] [id number] [facility] 2022-04-14 10:04:01 Outpatient [facility] [id number] [facility] 2022-02-17 09:34:00 Outpatient [facility] [id number] [facility] 2022-02-15 10:11:00 Outpatient [facility] [id number] [facility] 2023-03-25 00:00:00 2023-03-25 00:00:00 Outpatient [email or web address] diyala_S [facility] [id number] [facility] 2022-09-15 00:00:00 2022-09-15 00:00:00 OFFICE VISIT ESTAB PT LEVEL 3 [facility] [id number] [facility] 2022-07-19 00:00:00 2022-07-19 00:00:00 OFFICE VISIT ESTAB PT LEVEL 4 [facility] [id number] [facility] 2022-05-20 00:00:00 2022-05-20 00:00:00 (TEL) [facility] [id number] [facility] 2022-05-16 00:00:00 2022-05-16 00:00:00 NON-BILLAB LE VISIT [facility] [id number] [facility] 2022-04-25 00:00:00 2022-04-25 00:00:00 (TEL) [facility] [id number] [facility] 2022-04-14 00:00:00 2022-04-14 00:00:00 NON-BILLAB LE VISIT [facility] [id number] [facility] 2022-03-14 00:00:00 2022-03-14 00:00:00 NON-BILLAB LE VISIT [facility] [id number] [facility] 2022-03-04 00:00:00 2022-03-04 00:00:00 NON-BILLAB LE VISIT [facility] [id number] [facility] 2022-02-21 00:00:00 2022-02-21 00:00:00 (TEL) [facility] [id number] [facility] 2022-02-17 00:00:00 2022-02-17 00:00:00 (TEL) [facility] [id number] [facility] 2022-02-17 00:00:00 2022-02-17 00:00:00 OFFICE VISIT NEW PT LEVEL 4 [facility] [id number] [facility] 2018-06-07 08:00:00 2018-06-07 08:00:00 Outpatient [facility] [id number] [facility] 2018-05-10 08:00:00 2018-05-10 08:00:00 Outpatient [facility] [id number] [facility]
[2023-07-21 23:25] LABS: Hematocrit 40.3 % (36.0-45.0); Lymphocytes % 34.9 % (15.3-44.8); MPV 8.2 fL (7.6-11.3); Platelets 232 thou/uL (152-406); RBC Red Blood Cell Count 4.47 M/uL (3.86-4.86)
[2023-07-21 23:45] LABS: Albumin 3.3 g/dL (3.4-5.0); Bilirubin Direct 0.2 mg/dL (0-0.2); Bilirubin Indirect, Calculated 0.2 mg/dL (0.2-0.8); Bilirubin Total 0.4 mg/dL (0.2-1.0); Potassium 4.2 mEq/L (3.5-5.1); Protein, Total 7.3 g/dL (6.4-8.2); Troponin High Sensitivity 6.7 pg/mL (<58.9)
[2023-07-22] MEDS ORDERED: NA CHLORIDE 0.9% 1,000 ML ONE (00:01)
[2023-07-22 00:18] LABS: Protime INR 1.01
[2023-07-22 00:49] LABS: Specific Gravity 1.023 (1.005-1.030); Urine Bacteria <20 /HPF (<20); Urine Bilirubin NEGATIVE (Negative); Urine Blood Negative (Negative); Urine Clarity Turbid (Clear); Urine Color Light-Yellow (Yellow); Urine Glucose NEGATIVE (Negative); Urine Mucus 2+ /HPF (None Seen); Urine Protein NEGATIVE (Negative); Urine RBC <5 /HPF (None Seen); Urine Urobilinogen Normal (Normal)
--- NOTE | 2023-07-22 01:24 | EDPHYS ---
Physician Documentation [facility] Name: Brenda Madrid Age: 78 yrs Sex: Female : 1945 Arrival Date: 07/21/2023 Time: 22:32 Bed 13 Private MD: Franco Davis V ED Physician Mario Elliott HPI: 07/22 01:13 This 78 yrs old Female presents to ER via Ambulatory with complaints of jonathan Syncope, Blood Pressure Problem. 01:13 The patient has experienced syncope, became unresponsive, collapsed. Onset: The jonathan symptoms/episode began/occurred last night. Duration: This was a single episode, that lasted 3 minute(s). Context: the episode(s) was witnessed, by family. Associated injury: The patient did not suffer any apparent associated injury. Associated signs and symptoms: Pertinent positives: dizziness, lightheadedness. Current symptoms: NON FOCAL WEAKNESS. The patient has not experienced similar symptoms in the past. Historical: - Allergies: 07/21 22:54 No Known Allergies; tl4 - Home Meds: 22:54 meclizine 25 mg Oral tablet 1 tab 3 times daily as needed [Active]; atorvastatin 20 mg tl4 oral tablet 1 tab daily [Active]; - PMHx: 22:54 vertigo; tl4 - Immunization history:: Adult Immunizations unknown. - Social history:: Smoking status: Patient denies any tobacco usage or history of. - Family history:: not pertinent. ROS: 07/22 01:13 Constitutional: Negative for fever, chills, and weight loss, Eyes: Negative for injury, jonathan pain, redness, and discharge, ENT: Negative for injury, pain, and discharge, Neck: Negative for injury, pain, and swelling, Cardiovascular: Negative for chest pain, palpitations, and edema, Respiratory: Negative for shortness of breath, cough, wheezing, and pleuritic chest pain, Abdomen/GI: Negative for abdominal pain, nausea, vomiting, diarrhea, and constipation, Back: Negative for injury and pain, : Negative for injury, bleeding, discharge, and swelling, MS/Extremity: Negative for injury and deformity, Skin: Negative for injury, rash, and discoloration, Psych: Negative for depression, anxiety, suicide ideation, homicidal ideation, and hallucinations, Allergy/Immunology: Negative for hives, rash, and allergies, Endocrine: Negative for neck swelling, polydipsia, polyuria, polyphagia, and marked weight changes, Hematologic/Lymphatic: Negative for swollen nodes, abnormal bleeding, and unusual bruising, Neuro: Positive for dizziness, syncope, Exam: 01:13 Constitutional: This is a well developed, well nourished patient who is awake, alert, jonathan and in no acute distress. Head/Face: Normocephalic, atraumatic. Eyes: Pupils equal round and reactive to light, extra-ocular motions intact. Lids and lashes normal. Conjunctiva and sclera are non-icteric and not injected. Cornea within normal limits. Periorbital areas with no swelling, redness, or edema. ENT: Nares patent. No nasal discharge, no septal abnormalities noted. Tympanic membranes are normal and external auditory canals are clear. Oropharynx with no redness, swelling, or masses, exudates, or evidence of obstruction, uvula midline. Mucous membranes moist. Neck: Trachea midline, no thyromegaly or masses palpated, and no cervical lymphadenopathy. Supple, full range of motion without nuchal rigidity, or vertebral point tenderness. No Meningismus. Chest/axilla: Normal chest wall appearance and motion. Nontender with no deformity. No lesions are appreciated. Cardiovascular: Regular rate and rhythm with a normal S1 and S2. No gallops, murmurs, or rubs. Normal PMI, no JVD. No pulse deficits. Respiratory: Lungs have equal breath sounds bilaterally, clear to auscultation and percussion. No rales, rhonchi or wheezes noted. No increased work of breathing, no retractions or nasal flaring. Abdomen/GI: Soft, non-tender, with normal bowel sounds. No distension or tympany. No guarding or rebound. No evidence of tenderness throughout. Back: No spinal tenderness. No costovertebral tenderness. Full range of motion. Female : Normal external genitalia. Skin: Warm, dry with normal turgor. Normal color with no rashes, no lesions, and no evidence of cellulitis. MS/ Extremity: Pulses equal, no cyanosis. Neurovascular intact. Full, normal range of motion. Neuro: Awake and alert, GCS 15, oriented to person, place, time, and situation. Cranial nerves II-XII grossly intact. Motor strength 5/5 in all extremities. Sensory grossly intact. Cerebellar exam normal. Normal gait. Psych: Awake, alert, with orientation to person, place and time. Behavior, mood, and affect are within normal limits. 01:13 ECG was reviewed by the Attending Physician. Vital Signs: 07/21 22:50 BP 156 / 114; Pulse 78; Resp 20; Temp 98.1; Pulse Ox 98% on R/A; Weight 88.9 kg; Height tl4 5 ft. 1 in. ; Pain 6/10; 07/22 02:36 BP 140 / 90; Pulse 63; Resp 18 S; Pulse Ox 98% on R/A; lg3 03:15 BP 113 / 95; Pulse 60; Resp 16; Pulse Ox 97% on R/A; cg3 07/21 22:50 Body Mass Index 37.03 (88.90 kg, 154.94 cm) tl4 07/21 22:50 Pain Scale: Adult tl4 MDM: 07/21 23:02 Patient medically screened. [facility] 07/22 01:16 Differential Diagnosis: cardiac arrhythmia, cerebrovascular accident, emotional jonathan response, GI bleed, idiopathic syncope, sepsis, transient ischemic attack, vasovagal episode. Data reviewed: vital signs, nurses notes, lab test result(s), EKG, radiologic studies, CT scan, plain films. Consideration of Admission/Observation Patient was admitted/placed on observation. Escalation of care including admission/observation considered. I considered the following discharge prescriptions or medication management in the emergency department Medications were administered in the Emergency Department. See MAR. Independent interpretation of the following test(s) in the Emergency Department EKG: See my EKG interpretation above. Test considered but Not performed: MRI: NO MRI BRAIN. Historians other than the Patient: Spouse/Significant Other: WELL INFORMED. Care significantly affected by the following chronic conditions: VERTIGO. Counseling: I had a detailed discussion with the patient and/or guardian regarding the historical points, exam findings, and any diagnostic results supporting the discharge/admit diagnosis, the presence of at least one elevated blood pressure reading (>120/80) during this emergency department visit, lab results, radiology results, the need for further work-up and treatment in the hospital. 07/21 23:03 Order name: Basic Metabolic Panel; Complete Time: 01:05 jonathan 07/21 23:03 Order name: CBC with Diff; Complete Time: 01:05 [facility] 07/21 23:03 Order name: LFT's; Complete Time: 01:05 [facility] 07/21 23:03 Order name: Magnesium; Complete Time: 01:05 [facility] 07/21 23:03 Order name: NT PRO-BNP; Complete Time: 01:05 [facility] 07/21 23:03 Order name: PT-INR; Complete Time: 01:05 [facility] 07/21 23:03 Order name: Troponin HS; Complete Time: 01:05 [facility] 07/21 23:03 Order name: Urinalysis w/ reflexes; Complete Time: 01:05 [facility] 07/21 23:03 Order name: Lipase; Complete Time: 01:05 [facility] 07/22 02:52 Order name: Basic Metabolic Panel EDMS 07/22 02:52 Order name: Basic Metabolic Panel EDMS 07/22 02:52 Order name: CBC with Automated Diff EDMS 07/22 02:52 Order name: CBC with Automated Diff EDMS 07/22 02:52 Order name: Troponin High Sensitivity EDMS 07/22 10:02 Order name: Troponin High Sensitivity: draw now iw 07/21 23:03 Order name: XRAY Chest (1 view) [facility] 07/21 23:03 Order name: CT Head Brain wo Cont [facility] 07/21 23:03 Order name: US Carotid Artery Bilateral [facility] 07/21 23:03 Order name: EKG; Complete Time: 23:04 [facility] 07/22 02:52 Order name: EKG Electrocardiogram EDND 07/22 02:52 Order name: EKG Electrocardiogram EDND 07/22 02:52 Order name: EKG Electrocardiogram EDND 07/22 02:52 Order name: EKG Electrocardiogram EDND 07/21 23:03 Order name: Cardiac monitoring; Complete Time: 23:59 [facility] 07/21 23:03 Order name: EKG - Nurse/Tech; Complete Time: 23:59 [facility] 07/21 23:03 Order name: IV Saline Lock; Complete Time: 23:20 [facility] 07/21 23:03 Order name: Labs collected and sent; Complete Time: 23:20 [facility] 07/21 23:03 Order name: O2 Per Protocol; Complete Time: 23:20 [facility] 07/21 23:03 Order name: O2 Sat Monitoring; Complete Time: 23:20 [facility] 07/21 23:29 Order name: Misc. Order: RECOLLECT BLUE TOP; Complete Time: 00:08 rv1 EC:13 Rate is 72 beats/min. Rhythm is regular. QRS [place] is Normal. MS interval is normal. QRS jonathan interval is normal. QT interval is normal. No Q waves. T waves are Normal. No ST changes noted. Clinical impression: Normal ECG and No evidence of ischemia. Interpreted by me. Reviewed by me. Administered Medications: 00:22 Drug: NS 0.9% IV 1000 ml IV at 125 ml/hr continuous Route: IV; Rate: 125 ml/hr; Site: 6 right antecubital; 02:03 Drug: Rocephin IV 1 grams IV at per protocol once; Given slow IV push per pharmacy lg3 instructions Route: IV; Rate: per protocol; Site: right antecubital; 02:40 Follow up: Response: No adverse reaction; IV Status: Completed infusion; IV Intake: [id number] Disposition Summary: 07/22/23 01:23 Hospitalization Ordered Notes: Hospitalization Status: Observation jonathan Provider: Franco Davis cha Condition: Fair jonathan Problem: new jonathan Symptoms: have improved jonathan Bed/Room Type: Standard [facility] Location: [facility] ER HOLD(07/22/23 02:05) rv1 Room Assignment: ERHOLD-(07/22/23 02:05) rv1 Diagnosis - Syncope Near jonathan - Essential (primary) hypertension jonathan - UTI/ Urinary tract infection, site not specified jonathan Forms: - Medication Reconciliation Form jonathan - SBAR form jonathan - Leadership Thank You Letter jonathan Signatures: Dispatcher [employer] EDMS Mario Elliott MD MD cha Able, Lacie, RN RN lg3 Tasha Hendrickson rv1 Sidney Miramontes RN RN tm6 Jareth Gracia RN RN tl4 Corrections: (The following items were deleted from the chart) 02:05 01:23 Telemetry/MedSurg (observation) jonathan rv1 02:05 01:23 jonathan rv1 02:52 01:13 Urine Culture+BA.LAB.BRZ ordered. EDND EDMS
--- NOTE | 2023-07-22 01:24 | ER ---
Nurse's Notes [facility] Name: Brenda Madrid Age: 78 yrs Sex: Female : 1945 Arrival Date: 07/21/2023 Time: 22:32 Bed 13 Private MD: Franco Davis V Diagnosis: Syncope Near;Essential (primary) hypertension;UTI/ Urinary tract infection, site not specified Presentation: 07/21 22:50 Chief complaint: Patient states: Pt c/o chest heaviness, weakness, and dizziness since tl4 this morning. Pt had syncope this am without fall. Pt initially hypotensive at 99/73. Pt has checked her BP throughout the day and she is now hypertensive at 199/95. Pt denies nausea, diaphoresis, SOB. Coronavirus screen: At this time, the client does not indicate any symptoms associated with coronavirus-19. Ebola Screen: No symptoms or risks identified at this time. Initial Sepsis Screen: Does the patient meet any 2 criteria? No. Patient's initial sepsis screen is negative. Does the patient have a suspected source of infection? No. Patient's initial sepsis screen is negative. Risk Assessment: Do you want to hurt yourself or someone else? Patient reports no desire to harm self or others. Onset of symptoms was July 21, 2023 at 11:00. 22:50 Method Of Arrival: Ambulatory tl4 22:50 Acuity: RONALDO 2 tl4 Triage Assessment: 22:56 General: Appears uncomfortable, Behavior is calm, cooperative. Pain: Denies pain. EENT: tl4 No deficits noted. No signs and/or symptoms were reported regarding the EENT system. Neuro: Reports dizziness, weakness Denies blurred vision difficulty swallowing, headache. Cardiovascular: Reports chest pain, Denies diaphoresis, fatigue, lightheadedness, nausea, palpitations. Respiratory: No deficits noted. Denies cough, shortness of breath. GI: No deficits noted. No signs and/or symptoms were reported involving the gastrointestinal system. : No deficits noted. No signs and/or symptoms were reported regarding the genitourinary system. Derm: No deficits noted. No signs and/or symptoms reported regarding the dermatologic system. Historical: - Allergies: 22:54 No Known Allergies; tl4 - Home Meds: 22:54 meclizine 25 mg Oral tablet 1 tab 3 times daily as needed [Active]; atorvastatin 20 mg tl4 oral tablet 1 tab daily [Active]; - PMHx: 22:54 vertigo; tl4 - Immunization history:: Adult Immunizations unknown. - Social history:: Smoking status: Patient denies any tobacco usage or history of. - Family history:: not pertinent. Screenin/24 00:09 [facility] ED Fall Risk Assessment (Adult) History of falling in the last 3 months, tm6 including since admission Yes- physiologic fall (2 pts) Confusion or Disorientation No (0 pts) Intoxicated or Sedated No (0 pts) Impaired Gait No (0 pts) Mobility Assist Device Used No (0 pt) Altered Elimination No (0 pt) Score/Fall Risk Level 3 or more points = High Risk Oriented to surroundings, Maintained a safe environment. Abuse screen: Denies threats or abuse. Denies injuries from another. Nutritional screening: No deficits noted. Tuberculosis screening: No symptoms or risk factors identified. Assessment: 00:09 General: Appears in no apparent distress. Behavior is calm, cooperative. Neuro: Level tm6 of Consciousness is awake, alert, obeys commands, Oriented to person, place, time, situation. Cardiovascular: Capillary refill < 3 seconds Patient's skin is warm and dry. Rhythm is sinus rhythm. Respiratory: Airway is patent Respiratory effort is even, unlabored, Respiratory pattern is regular, symmetrical. GI: Abdomen is round non-distended. : No signs and/or symptoms were reported regarding the genitourinary system. EENT: No signs and/or symptoms were reported regarding the EENT system. Derm: No signs and/or symptoms reported regarding the dermatologic system. Musculoskeletal: No signs and/or symptoms reported regarding the musculoskeletal system. 00:29 Neuro: Reports dizziness, frequent dizziness. tm6 Vital Signs: 07/21 22:50 BP 156 / 114; Pulse 78; Resp 20; Temp 98.1; Pulse Ox 98% on R/A; Weight 88.9 kg; Height tl4 5 ft. 1 in. ; Pain 6/10; 07/22 02:36 BP 140 / 90; Pulse 63; Resp 18 S; Pulse Ox 98% on R/A; lg3 03:15 BP 113 / 95; Pulse 60; Resp 16; Pulse Ox 97% on R/A; cg3 07/21 22:50 Body Mass Index 37.03 (88.90 kg, 154.94 cm) tl4 02 22:50 Pain Scale: Adult tl4 ED Course: 07/21 22:35 Patient arrived in ED. rg4 22:35 Franco Davis MD is Private Physician. rg4 22:54 Triage completed. tl4 22:56 Arm band placed on left wrist. tl4 23:02 Mario Elliott MD is Attending Physician. jonathan 23:20 Inserted saline lock: 20 gauge in right antecubital area, using aseptic technique. ls5 Blood collected. 23:34 XRAY Chest (1 view) In Process Unspecified. EDMS 23:44 CT Head Brain wo Cont In Process Unspecified. EDMS 07/22 00:09 Patient has correct armband on for positive identification. Placed in gown. Bed in low tm6 position. Call light in reach. Side rails up X2. Provided Education on: plan of care. Client placed on continuous cardiac and pulse oximetry monitoring. NIBP monitoring applied. cardiac monitor on. Door closed. Noise minimized. Warm blanket given. 00:09 EKG done, by ED staff. tm6 00:40 Carotid Artery Bilateral In Process Unspecified. EDMS 01:22 Franco Davis MD is Hospitalizing Provider. jonathan 02:36 Sharona Mcdaniel, RN is Primary Nurse. lg3 11:55 No provider procedures requiring assistance completed. IV discontinued, intact, rs5 bleeding controlled, No redness/swelling at site. Pressure dressing applied. Administered Medications: 00:22 Drug: NS 0.9% IV 1000 ml IV at 125 ml/hr continuous Route: IV; Rate: 125 ml/hr; Site: tm6 right antecubital; 02:03 Drug: Rocephin IV 1 grams IV at per protocol once; Given slow IV push per pharmacy lg3 instructions Route: IV; Rate: per protocol; Site: right antecubital; 02:40 Follow up: Response: No adverse reaction; IV Status: Completed infusion; IV Intake: [id number] Medication: 00:09 VIS not applicable for this client. tm6 Intake: 02:40 IV: 10ml; Total: 10ml. lg3 Outcome: 01:23 Decision to Hospitalize by Provider. jonathan 11:55 Discharged to home ambulatory, rs5 11:55 Condition: stable 11:55 Discharge instructions given to patient, family, Instructed on discharge instructions, follow up and referral plans. Demonstrated understanding of instructions, follow-up care, 11:55 Patient left the ED. rs5 Signatures: Dispatcher [employer] EDMario Wheat MD MD cha Garcia, Rubi rg4 Sharona Mcdaniel, RN RN lg3 Amrit Lozoya, RN RN rs5 Valdo Sorensen ls5 Lilly Blue cg3 Sidney Miramontes RN RN tm6 Jareth Gracia RN RN tl4 Corrections: (The following items were deleted from the chart) 03:49 00:08 BP 153 / 77; Pulse 71bpm; Resp 17bpm; Pulse Ox 99% RA; Pain 0/10, Adult; tm6 cg3
[2023-07-22] MEDS ORDERED: CEFTRIAXONE 1000 MG/VIAL ONE ×2 (01:53→07:52)
[2023-07-22] MEDS ORDERED: ONDANSETRON 4 MG/2 ML VIAL IV PRN (02:50)
[2023-07-22] MEDS ORDERED: ACETAMINOPHEN 500 MG TAB PO PRN (02:50)
[2023-07-22] MEDS: NA CHLORIDE 0.9% 1,000 ML IV SCH (04:30)
[2023-07-22 06:08] VITALS: BMI 38.2
[2023-07-22] MEDS ORDERED: ASPIRIN EC 81 MG TAB PO ONE (07:52)
[2023-07-22] MEDS ORDERED: LOSARTAN POTASSIUM 50 MG TABLET ONE (07:52)
[2023-07-22] MEDS ORDERED: FAMOTIDINE 20 MG/2 ML VIAL IV ONE (07:52)
[2023-07-22] MEDS: ASPIRIN EC 81 MG TAB PO SCH (08:02)
[2023-07-22] MEDS: CEFTRIAXONE 1,000 MG in NA CHLORIDE 0.9% 50 ML IVPB SCH (08:03)
[2023-07-22] MEDS: LOSARTAN POTASSIUM 50 MG TABLET PO SCH (08:03)
[2023-07-22] MEDS: FAMOTIDINE 20 MG/2 ML VIAL IV SCH (08:03)
[2023-07-22 08:20] VITALS: BP 113/87; TEMP 98
[2023-07-22] MEDS ORDERED: FAMOTIDINE 20 MG/2 ML VIAL IV SCH (09:00)
[2023-07-22 09:09] VITALS: O2SAT 99
[2023-07-22] MEDS ORDERED: MECLIZINE HCL 12.5 MG TAB PO PRN (09:46)
[2023-07-22] MEDS: PNEUMOCOCCAL VACCINE 0.5 ML IMVAC ONE (10:00)
[2023-07-22] MEDS: INFLUENZA VACCINE (for 6+ mo) 0.5 ML DOSE IMVAC ONE (10:00)
--- NOTE | 2023-07-22 16:37 | P.SSS ---
Patient History Date of Service: 07/22/23 Reason for admission: PASSED OUT History of Present Illness: GRACE HAD SYNCOPE EPISODE. THIS WAS LAST NIGHT. SHE HAD NO CHEST PAIN AND NO HEADACHES AND WEAKNESS. SHE HAS NO FEVER. Allergies No Known Allergies Allergy (Verified 02/24/22 06:50) Home medications list reviewed: Yes Home Medications: Meclizine HCl 1 tab PO Q8H PRN 06/20/19 Atorvastatin Calcium 20 mg PO DAILY 07/22/23 - Past Medical/Surgical History Has patient received pneumonia vaccine in the past: No Diabetic: No -: HTN -: -: CHOLECYSTECTOMY - Social History Smoking Status: Never smoker Alcohol use: No CD- Drugs: No Caffeine use: No Review of Systems 10-point ROS is otherwise unremarkable Physical Examination - Vital Signs Temperature: 98.0 F Blood Pressure: 113/87 Pulse: 62 Respirations: 18 Pulse Ox (%): 99 - Physical Exam General: Alert, In no apparent distress HEENT: Atraumatic, PERRLA, Mucous membr. moist/pink, EOMI, Sclerae nonicteric Neck: Supple, 2+ carotid pulse no bruit, No LAD, Without JVD or thyroid abnormality Respiratory: Clear to auscultation bilaterally, Normal air movement Cardiovascular: Regular rate/rhythm, Normal S1 S2 Gastrointestinal: Normal bowel sounds, No tenderness Musculoskeletal: No tenderness Integumentary: No rashes Neurological: Normal gait, Normal speech, Normal strength at 5/5 x4 extr, Normal tone, Normal affect Lymphatics: No axilla or inguinal lymphadenopathy - Studies Laboratory Data (last 24 hrs) 07/22/23 07/21/23 07/21/23 00:01 23:17 23:17 WBC 5.80 Hgb 13.7 Hct 40.3 Plt Count 232 PT 11.1 INR 1.01 Sodium 142 Potassium 4.2 BUN 25 H Creatinine 0.96 Glucose 94 Magnesium 2.0 Total Bilirubin 0.4 AST 13 L ALT 19 Alkaline Phosphatase 103 Lipase 25 - Diagnosis (Problem(s)) (1) Syncope Onset Date: 02/16/15 Status: Acute Plan: SHE HAS SYNCOPE AND HAS NO OBVIOUS REASON FOR IT. CE NEG, EKG NEG. CT BRAIN NEG. UTI IS QUESTIONABLE. SHE MAY HAVE ATYPICAL SEIZURES AND WILL BE HARD TO DIAGNOSE. ADD KEPPRA BID AND UTI ANTIBIOTIC. WILL FU. SHE IS NOT ORTHOSTATIC. SHE WANTS TO GO HOME. I ASKED HER TO STAY ONE DAY AND SHE IS NOT WANTING TO STAY. SHE WILL FU WITH ME AT OFFICE. - Disposition Disposition: LEFT DUE TO PCP REQUEST Condition: GOOD
--- NOTE | 2023-07-22 18:22 | RAD REPORT ---
EXAM DESCRIPTION: CT - Head Brain Wo Cont - 07/22/2023 4:40 am CLINICAL HISTORY: The patient is 78 years old and is Female; SYNCOPE TECHNIQUE: Axial computed tomography images of the head/brain without intravenous contrast. Sagitt al and coronal reformatted images were created and reviewed. This CT exam was performed using one o r more of the following dose reduction techniques: automated exposure control, adjustment of the mA and/or kV according to patient size, and/or use of iterative reconstruction technique. COMPARISON: No relevant prior studies available. FINDINGS: Brain: Mild nonspecific white matter changes likely related to chronic microvascular isc hemic disease. No hemorrhage. Ventricles: Unremarkable. No ventriculomegaly. Bones/joints: Unremarkable. No acute fracture. Soft tissues: Unremarkable. Sinuses: Unremarkable as visualized. Mastoid air cells: Unremarkable as visualized. No mastoid effusion. IMPRESSION: No acute intracranial abnormality. Electronically signed by: Ry Whitten MD 07/22/2023 12:35 AM INSERT OPERATOR Due to temporary technical issues with the PACS/Fluency reporting system, reports are being signed by the in house radiologists without review as a courtesy to insure prompt reporting. The interpreting radiologist is fully responsible for the content of the report.
--- NOTE | 2023-07-22 18:34 | RAD REPORT ---
EXAM DESCRIPTION: US - Carotid Artery Bilateral - 07/22/2023 12:39 am US Bilateral Carotid Artery Duplex Doppler CLINICAL HISTORY: Dizziness COMPARISON: CT Head/Brain Without Contrast 07/21/2023 TECHNIQUE: Grayscale, color Doppler, and duplex Doppler images of major neck arteries. FINDINGS: No significant carotid atherosclerotic plaque is grossly seen. No abnormal elevated peak systolic velocities by NASCET criteria. Both vertebral arteries show normal antegrade flow. IMPRESSION: Unremarkable US carotid Electronically signed by: Yoel Huffman MD 07/22/2023 02:01 AM INSIDE SALES ASSISTANT Due to temporary technical issues with the PACS/Fluency reporting system, reports are being signed by the in house radiologists without review as a courtesy to insure prompt reporting. The interpreting radiologist is fully responsible for the content of the report.
--- NOTE | 2023-07-22 18:38 | RAD REPORT ---
EXAM DESCRIPTION: RAD - Chest Single View - 07/21/2023 11:33 pm CLINICAL HISTORY: The patient is 78 years old and is Female; COUGH TECHNIQUE: Frontal view of the chest. COMPARISON: No relevant prior studies available. FINDINGS: LUNGS: Unremarkable. No consolidation. PLEURAL SPACE: Unremarkable. No pneumothorax. HEART: Unremarkable. No cardiomegaly. MEDIASTINUM: Unremarkable. Normal mediastinal contour. BONES/JOINTS: Unremarkable. No acute fracture. UPPER ABDOMEN: Unremarkable as visualized. IMPRESSION: No acute cardiopulmonary process. Electronically signed by: Nahomy Pascal MD 07/22/2023 12:26 AM TELEMARKETER SUPERVISOR Due to temporary technical issues with the PACS/Fluency reporting system, reports are being signed by the in house radiologists without review as a courtesy to insure prompt reporting. The interpreting radiologist is fully responsible for the content of the report.
[2023-07-23] MEDS ORDERED: ATORVASTATIN 20 MG TAB PO SCH (09:00)
--- NOTE | 2023-07-24 14:35 | EKG ---
Test Date: 2023-07-21 Test Time: 23:54:49 Department Mgr: CESILIA MEASUREMENT RESULTS: Intervals: Rate: 72 MO: 150 QRSD: 92 QT: 418 QTc: 457 Union: P: 57 MO: 150 QRS: -16 T: 41 INTERPRETIVE STATEMENTS: Normal sinus rhythm Normal ECG Compared to ECG 02/21/2022 10:22:48 No significant changes Electronically Signed On 07-24-23 14:29:00 OLAP DEVELOPER by Piyush Main
== END 2023-07-22 11:37 | disposition home or self-care (01) ==
LOC: ER 22:32 → ERHOLD 07-22 01:26
PROVIDERS: ADMIT Internal Medicine; ATTEND Internal Medicine
DX: R55 Syncope and collapse (principal); N39.0 Urinary tract infection, site not specified; I10 Essential (primary) hypertension; Z53.29 Procedure and treatment not carried out because of patient's decision for other reasons
CPT/HCPCS: 85025; 81001; 80048; 36415; 83735; 80076; 84484 ×2; 83690; 83880; 70450; 71045; 93880; J7030 ×2; J0696 ×2; 93005; G0378

== ENCOUNTER 2023-08-08 16:19 | Observation (INO) | payer OTHER ==
--- OUTSIDE RECORDS SUMMARY | 2023-08-08 16:23 | XMS REPORT | Continuity of Care Document ---
Author Name Unknown Address [address] [facility] [address] [id number] [facility] thconnect Address [address] [facility] [address] [place] [address] Care Team Providers Care Health Aid Name Role Phone Franco Davis Attending Clinician Unavailable [email or web address]_S Attending Clinician Unavaila ble [email or web address]_S Admitting Clinician Unavaila ble Payers Payer Name Policy Type Policy Number Effective Date Expirati on Date Source [facility] 1 [id number] [facility] Problems Condition Name Condition Details Condition Category Status Onset Date Resolution Date Last Treatment Date Treating Clinician Comments Source [id number] Primary osteoarthr itis of left knee Problem [facility] [id number] Body mass index (BMI) of 40.0-44.9 in adult Problem [facility] [id number] Pain, joint, knee, left Problem [facility] [id number] Left sided sciatica Problem [facility] Social History Social Habit Start Date Stop Date Quantity Comments Source History of Tobacco Use [facility] Sex Assigned At [facility] Smoking Status Start Date Stop Date Source Never Smoker [facility] Medications Ordered Medication Name Filled Medication Name [...] MG HYDROcodone -Acetaminop hen 7.5-325 MG 2022-0 02-21 00:00: 00 No 1{table t_as_ne eded} HYDROcodon e-Acetamin ophen 7.5-325 MG HYDROcodone -Acetaminop hen 7.5-325 MG HYDROcodone -Acetaminop hen 7.5-325 MG 2-0 02-21 00:00: 00 No 1{table t_as_ne eded} HYDROcodon e-Acetamin ophen 7.5-325 MG HYDROcodone -Acetaminop hen 7.5-325 MG HYDROcodone -Acetaminop hen 7.5-325 MG 2-0 02-21 00:00: 00 No 1{table t_as_ne eded} HYDROcodon e-Acetamin ophen 7.5-325 MG Bupivicaine [place] Bupivicaine [place] 2017-05 00:00: 00 No 2.5mg [facility] Depo Medrol (40mg) Depo Medrol (40mg) 2017-05 00:00: 00 No 40mg [facility] Bupivicaine [place] Bupivicaine [place] 2017-05 00:00: 00 No 2.5mg [facility] Depo Medrol (40mg) Depo Medrol (40mg) 2017-05 00:00: 00 No 40mg [facility] Bupivicaine [place] Bupivicaine [place] 2017-05 00:00: 00 No 2.5mg [facility] Depo Medrol (40mg) Depo Medrol (40mg) 2017-05 00:00: 00 No 40mg [facility] Bupivicaine [place] Bupivicaine [place] 2017-05 00:00: 00 No 2.5mg [facility] Depo Medrol (40mg) Depo Medrol (40mg) 2017-05 00:00: 00 No 40mg [facility] Bupivicaine [place] Bupivicaine [place] 2017-05 00:00: 00 No 2.5mg [facility] Depo Medrol (40mg) Depo Medrol (40mg) 2017-05 00:00: 00 No 40mg [facility] Bupivicaine [place] Bupivicaine [place] 2017-05 00:00: 00 No 2.5mg [facility] Depo Medrol (40mg) Depo Medrol (40mg) 2017-05 00:00: 00 No 40mg [facility] Bupivicaine [place] Bupivicaine [place] 2017-05 00:00: 00 No 2.5mg [facility] Depo Medrol (40mg) Depo Medrol (40mg) 2017-05 00:00: 00 No 40mg [facility] Bupivicaine [place] Bupivicaine [place] 2017-05 00:00: 00 No 2.5mg [facility] Bupivicaine [place] Bupivicaine [place] 2017-05 00:00: 00 No 2.5mg [facility] Depo Medrol (40mg) Depo Medrol (40mg) 2017-05 00:00: 00 No 40mg [facility] Depo Medrol (40mg) Depo Medrol (40mg) 2017-05 00:00: 00 No 40mg [facility] Bupivicaine [place] Bupivicaine [place] 2017-05 00:00: 00 No 2.5mg [facility] Depo Medrol (40mg) Depo Medrol (40mg) 2017-05 00:00: 00 No 40mg [facility] Bupivicaine [place] Bupivicaine [place] 2017-05 00:00: 00 No 2.5mg [facility] Depo Medrol (40mg) Depo Medrol (40mg) 2017-05 00:00: 00 No 40mg [facility] Bupivicaine [place] Bupivicaine [place] 2017-05 00:00: 00 No 2.5mg [facility] Depo Medrol (40mg) Depo Medrol (40mg) 2017-05 00:00: 00 No 40mg [facility] Bupivicaine [place] Bupivicaine [place] 2017-05 00:00: 00 No 2.5mg [facility] Depo Medrol (40mg) Depo Medrol (40mg) 2017-05 00:00: 00 No 40mg [facility] Bupivicaine [place] Bupivicaine [place] 2017-05 00:00: 00 No 2.5mg [facility] Depo Medrol (40mg) Depo Medrol (40mg) 2017-05 00:00: 00 No 40mg [facility] Bupivicaine [place] Bupivicaine [place] 2017-05 00:00: 00 No 2.5mg [facility] Depo Medrol (40mg) Depo Medrol (40mg) 2017-05 00:00: 00 No 40mg [facility] Bupivicaine [place] Bupivicaine [place] 2017-05 00:00: 00 No 2.5mg [facility] Depo Medrol (40mg) Depo Medrol (40mg) 2017-05 00:00: 00 No 40mg [facility] PriLOSEC PriLOSEC No PriLOSEC Lisinopril Lisinopril No [...] Besylate Yes Iván Dexter not defined [facility] Lisinopril Lisinopril Yes Iván Dexter not defined [facility] Meclizine HCl Meclizine HCl Yes Iván Dexter not defined [facility] Omeprazole Omeprazole Yes Iván Dexter not defined [facility] Vital Signs Vital Name Observation Time Observation Value Comments S ource height 2022-09-15 08:30:00 60 [in_i] [facility] weight 2022-09-15 08:30:00 199.8 [lb_av] [facility] bmi 2022-09-15 08:30:00 39.02 kg/m2 Comm [facility] blood pressure systolic 2022-09-15 08:30:00 119 mm[Hg] [facility] blood pressure diastolic 2022-09-15 08:30:00 76 mm[Hg] [facility] height 2022-07-19 14:00:00 60 [in_i] [facility]mo [facility] weight 2022-07-19 14:00:00 196.4 [lb_av] Co [facility] temperature 2022-07-19 14:00:00 98.0 [degF] Com [facility] bmi 2022-07-19 14:00:00 38.35 kg/m2 Comm [facility] blood pressure systolic 2022-07-19 14:00:00 120 mm[Hg] [facility] blood pressure diastolic 2022-07-19 14:00:00 84 mm[Hg] [facility] height 2022-05-16 08:30:00 60 [in_i] Commo [facility] weight 2022-05-16 08:30:00 212 [lb_av] Comm [facility] temperature 2022-05-16 08:30:00 97.2 [degF] Com [facility] bmi 2022-05-16 08:30:00 41.4 kg/m2 [facility] blood pressure systolic 2022-05-16 08:30:00 136 mm[Hg] [facility] blood pressure diastolic 2022-05-16 08:30:00 80 mm[Hg] [facility] height 2022-04-14 08:30:00 60 [in_i] Commo [facility] weight 2022-04-14 08:30:00 212 [lb_av] Comm on [facility] temperature 2022-04-14 08:30:00 98.1 [degF] Com [facility] bmi 2022-04-14 08:30:00 41.4 kg/m2 [facility] blood pressure systolic 2022-04-14 08:30:00 129 mm[Hg] [facility] blood pressure diastolic 2022-04-14 08:30:00 81 mm[Hg] [facility] height 2022-03-14 14:30:00 60 [in_i] Commo [facility] weight 2022-03-14 14:30:00 212 [lb_av] Comm on [facility] temperature 2022-03-14 14:30:00 98.2 [degF] Com [facility] bmi 2022-03-14 14:30:00 41.4 kg/m2 [facility] blood pressure systolic 2022-03-14 14:30:00 134 mm[Hg] [facility] blood pressure diastolic 2022-03-14 14:30:00 84 mm[Hg] [facility] height 2022-03-04 09:00:00 60 [in_i] Commo n [facility] weight 2022-03-04 09:00:00 212 [lb_av] Comm on [facility] temperature 2022-03-04 09:00:00 97.7 [degF] Com [facility] bmi 2022-03-04 09:00:00 41.4 kg/m2 [facility] blood pressure systolic 2022-03-04 09:00:00 126 mm[Hg] [facility] blood pressure diastolic 2022-03-04 09:00:00 82 mm[Hg] [facility] height 2022-02-17 10:00:00 60 [in_i] Commo [facility] weight 2022-02-17 10:00:00 212.8 [lb_av] Co [facility] temperature 2022-02-17 10:00:00 97.9 [degF] Com mon [facility] bmi 2022-02-17 10:00:00 41.56 kg/m2 Comm [facility] blood pressure systolic 2022-02-17 10:00:00 136 mm[Hg] [facility] blood pressure diastolic 2022-02-17 10:00:00 84 mm[Hg] [facility] Encounters Start Date/Time End Date/Time Encounter Type Admission Type Attending [facility] Care Facility Care Department Encounter ID Source 2022-07-19 16:26:00 Outpatient Franco Davis [facility] [id number] [facility] 2022-04-14 10:04:01 Outpatient Franco Davis [facility] [id number] [facility] 2022-02-17 09:34:00 Outpatient Franco Davis [facility] [id number] [facility] 2022-02-15 10:11:00 Outpatient Franco Davis [facility] [id number] [facility] 2023-03-25 00:00:00 2023-03-25 00:00:00 Outpatient GC_GCBZW_Ka diyala_S [facility] [id number] [facility] 2022-09-15 00:00:00 2022-09-15 00:00:00 OFFICE VISIT ESTAB PT LEVEL 3 [facility] [id number] [facility] 2022-07-19 00:00:00 2022-07-19 00:00:00 OFFICE VISIT ESTAB PT LEVEL 4 [facility] [id number] [facility] 2022-05-20 00:00:00 2022-05-20 00:00:00 (TEL) [facility] [id number] [facility] 2022-05-16 00:00:00 2022-05-16 00:00:00 NON-BILLAB LE VISIT [facility] [id number] [facility] 2022-04-25 00:00:00 2022-04-25 00:00:00 (TEL) [facility] [id number] [facility] 2022-04-14 00:00:00 2022-04-14 00:00:00 NON-BILLAB LE VISIT [facility] [id number] [facility] 2022-03-14 00:00:00 2022-03-14 00:00:00 NON-BILLAB LE VISIT [facility] [id number] [facility] 2022-03-04 00:00:00 2022-03-04 00:00:00 NON-BILLAB LE VISIT [facility] [id number] [facility] 2022-02-21 00:00:00 2022-02-21 00:00:00 (TEL) [facility] [id number] [facility] 2022-02-17 00:00:00 2022-02-17 00:00:00 (TEL) [facility] [id number] [facility] 2022-02-17 00:00:00 2022-02-17 00:00:00 OFFICE VISIT NEW PT LEVEL 4 [facility] [id number] [facility] 2018-06-07 08:00:00 2018-06-07 08:00:00 Outpatient [facility] [id number] [facility] 2018-05-10 08:00:00 2018-05-10 08:00:00 Outpatient [facility] [id number] [facility]
--- NOTE | 2023-08-08 17:12 | RAD REPORT ---
EXAM DESCRIPTION: RAD - Chest Pa And Lat (2 Views) - 08/08/2023 5:06 pm CLINICAL HISTORY: Doctor's orders Chest pain. COMPARISON: Chest Single View dated 07/21/2023; Chest Single View dated 02/24/2022; Chest Pa And Lat ( 2 Views) dated 02/21/2022; CHEST SINGLE VIEW dated 02/15/2015 TECHNIQUE: PA and lateral views of the chest were obtained. FINDINGS: The lungs are hyperexpanded compatible with COPD. The heart is upper limit of normal in si ze. No fracture or aggressive bony process. IMPRESSION: COPD without acute process identified. The USPSTF recommends annual screening for lung cancer with low-dose CT (LDCT) in adults aged 50 to 80 years who have a 20 pack-year smoking history and currently smoke or have quit within the past 15 years.
[2023-08-08] MEDS ORDERED: HYDROMORPHONE HCL 1 MG/ML INJ IV PRN (17:28)
[2023-08-08] MEDS ORDERED: ONDANSETRON 4 MG (ODT) TAB PO PRN (18:00)
[2023-08-08] MEDS ORDERED: POLYETHYL GLY 3350 17 GM/DOSE PO PRN (18:00)
[2023-08-08] MEDS ORDERED: LOPERAMIDE HCL 2 MG CAPSULE PO PRN (18:00)
[2023-08-08] MEDS ORDERED: DIPHENHYDRAMINE 25 MG TAB/CAP PO PRN (18:00)
[2023-08-08] MEDS ORDERED: ACETAMINOPHEN 325 MG TABLET PO PRN (18:00)
[2023-08-08 18:18] LABS: Absolute Basophils 0.1 K/uL (0-0.5); Absolute Lymphocytes (CBC) 1.9 K/uL (0.7-4.9); Absolute Monocytes 0.5 K/uL (0.1-1.3); Absolute Neutrophil 3.3 K/uL (1.8-8.0); Basophils % 0.9 % (0-1.3); Eosinophils % 0.4 % (0-4.4); Hemoglobin 13.9 g/dL (12.0-15.0); Lymphocytes % 33.1 % (15.3-44.8); MCV 90.8 fL (80-100); MPV 9.2 fL (7.6-11.3); Neutrophils % 56.6 % (41.7-73.7); Nucleated Red Blood Cells % 0.1 % (0-0); Platelets 187 thou/uL (152-406); RBC Red Blood Cell Count 4.62 M/uL (3.86-4.86); Red Cell Distribution Width 14.3 % (12.1-15.2)
[2023-08-08 18:31] LABS: Albumin 3.7 g/dL (3.4-5.0); Anion Gap 7.4 mEq/L (5.0-15.0); Bilirubin Direct 0.2 mg/dL (0-0.2); Bilirubin Indirect, Calculated 0.2 mg/dL (0.2-0.8); Bilirubin Total 0.4 mg/dL (0.2-1.0); Globulin 3.8 g/dL (2.3-3.5); Potassium 4.4 mEq/L (3.5-5.1); Protein, Total 7.5 g/dL (6.4-8.2)
--- NOTE | 2023-08-08 18:41 | RAD REPORT ---
EXAM DESCRIPTION: CTAbdomen Pelvis W Contrast - 08/08/2023 6:18 pm CLINICAL HISTORY: Abdominal pain. Abdominal Pain COMPARISON: Abdomen Pelvis W Contrast dated 06/20/2019; CT ABD PELVIS W CONTRAST dated 02/28/2014 TECHNIQUE: Biphasic CT imaging of the abdomen and pelvis was performed with 100 ml non-ionic IV cont rast. All CT scans are performed using dose optimization technique as appropriate and may include automated exposure control or mA/KV adjustment according to patient size. FINDINGS: The lung bases are clear.Moderate hiatal hernia. Small low-density lesions are seen throughout the liver likely cysts. Cholecystectomy clips. The sple en, pancreas, adrenal glands and kidneys are within normal limits. No bowel obstruction, free air, free fluid or abscess. The appendix is normal. No evidence of signi ficant lymphadenopathy. No suspicious bony findings. IMPRESSION: No acute intra-abdominal or pelvic finding. Moderate hiatal hernia.
[2023-08-08 19:16] VITALS: BMI 37.7
[2023-08-08 19:38] LABS: Specific Gravity > 1.030 (1.005-1.030); Urine Bilirubin NEGATIVE (Negative); Urine Blood Negative (Negative); Urine Clarity Clear (Clear); Urine Color Colorless (Yellow); Urine Glucose NEGATIVE (Negative); Urine Protein NEGATIVE (Negative); Urine Urobilinogen Normal (Normal); Urine pH 6.5 (5.0-7.0)
--- NOTE | 2023-08-08 19:43 | ER ---
Nurse's Notes [facility] Name: Brenda Madrid Age: 78 yrs Sex: Female : 1945 Arrival Date: 08/08/2023 Time: 16:19 Bed Direct Admit Private MD: Franco Davis V Diagnosis: Abdominal pain, Generalized;Diverticulitis of intestine, part unspecified, without perforation or abscess without bleeding;Dizziness and giddiness;Syncope Near Presentation: 08/07 16:44 Chief complaint: Patient states: Direct admit from Dr. Davis. Pt c/o dizziness, ld1 generalized weakness X 2 days. Coronavirus screen: At this time, the client does not indicate any symptoms associated with coronavirus-19. Ebola Screen: No symptoms or risks identified at this time. Initial Sepsis Screen: Does the patient meet any 2 criteria? No. Patient's initial sepsis screen is negative. Does the patient have a suspected source of infection? No. Patient's initial sepsis screen is negative. Risk Assessment: Do you want to hurt yourself or someone else? Patient reports no desire to harm self or others. Onset of symptoms was August 08, 2023. 16:44 Method Of Arrival: Wheelchair ld1 16:44 Acuity: RONALDO 3 ld1 Triage Assessment: 16:45 General: Appears in no apparent distress. comfortable, Behavior is calm, cooperative, ld1 appropriate for age. Pain: Denies pain. EENT: No signs and/or symptoms were reported regarding the EENT system. Neuro: Reports dizziness, weakness. Cardiovascular: Capillary refill < 3 seconds Patient's skin is warm and dry. Respiratory: Airway is patent Respiratory effort is even, unlabored. GI: Abdomen is round non-distended. : No signs and/or symptoms were reported regarding the genitourinary system. Historical: - Allergies: 16:45 No Known Allergies; ld1 - PMHx: 16:45 Vertigo; ld1 - Immunization history:: Adult Immunizations up to date. - Social history:: Smoking status: Patient denies any tobacco usage or history of. Patient/guardian denies using alcohol. Assessment: 19:31 Reassessment: family requesting to speak to Dr. Davis, attempt to call, left VM , iw Daughter's name is Bailee [phone]. Vital Signs: 16:44 BP 137 / 85; Pulse 64; Resp 18; Temp 97.8(TE); Pulse Ox 96% on R/A; Weight 87.54 kg; ld1 Height 5 ft. 5 in. ; Pain 0/10; 16:44 Body Mass Index 32.12 (87.54 kg, 165.1 cm) ld1 16:44 Pain Scale: Adult ld1 ED Course: 16:23 Patient arrived in ED. mr 16:24 Franco Davis MD is Private Physician. mr 16:45 Triage completed. ld1 16:45 Arm band placed on right wrist. ld1 18:07 CT completed. nj 18:07 Note: started a 22gauge diffusics IV in right AC by Masha Stone . in 19:42 Franco Davis MD is Hospitalizing Provider. lg3 19:50 Maegan Maxwell, RN is Primary Nurse. me1 Administered Medications: No medications were administered Outcome: 19:42 Decision to Hospitalize by Provider. lg3 20:18 Admitted to Tele accompanied by [facility], room 403, with chart, Report called to Report me1 faxed at 19:49. Receipt confirmed with KEM Krishnamurthy (boiling house oiler). 20:18 Condition: stable 20:18 Instructed on the need for admit, 20:45 Patient left the ED. me1 Signatures: Lilly Mckeon, Reg Reg Katie Etienne, RN KEM Yariel, Sharona Jimenez, RN KEM 3 Dayana Oliva, RN RN [facility] Maegan Maxwell, RN RN [facility] Corrections: (The following items were deleted from the chart) 16:46 16:45 Allergies: Aspirin; ld1 ld1 19:35 19:31 Reassessment: family requesting to speak to Dr. Davis, attempt to call, left iw
[2023-08-08 21:11] VITALS: O2SAT 96
[2023-08-08] MEDS: NACHLORIDE 0.45% 1,000 ML IV SCH (22:05)
[2023-08-08] MEDS: CIPROFLOXACIN 400 MG/200 ML IVPB IV SCH (22:06)
[2023-08-08] MEDS: METRONIDAZOLE 500mg IVPB 500 MG/100 ML BAG IV SCH (22:06)
[2023-08-08] MEDS: ENOXAPARIN 40 MG/0.4 ML SQ SCH (22:06)
[2023-08-08] MEDS: PNEUMOCOCCAL VACCINE 0.5 ML IMVAC ONE (22:07)
[2023-08-08] MEDS: INFLUENZA VACCINE (for 6+ mo) 0.5 ML DOSE IMVAC ONE (22:08)
[2023-08-09] MEDS ORDERED: METRONIDAZOLE 500mg IVPB 500 MG/100 ML BAG IV SCH (01:00)
[2023-08-09 06:32] LABS: Absolute Lymphocytes (CBC) 1.9 K/uL (0.7-4.9); Absolute Monocytes 0.5 K/uL (0.1-1.3); Absolute Neutrophil 2.7 K/uL (1.8-8.0); Basophils % 0.8 % (0-1.3); Eosinophils % 0.8 % (0-4.4); Hematocrit 37.6 % (36.0-45.0); Hemoglobin 12.8 g/dL (12.0-15.0); Lymphocytes % 36.3 % (15.3-44.8); MCH 30.5 pg (27.0-35.0); MCHC 33.9 g/dL (32.0-36.0); MCV 89.8 fL (80-100); MPV 9.3 fL (7.6-11.3); Monocytes % 9.3 % (3.3-12.3); Neutrophils % 52.8 % (41.7-73.7); Nucleated Red Blood Cells % 0.1 % (0-0); Platelets 166 thou/uL (152-406); RBC Red Blood Cell Count 4.18 M/uL (3.86-4.86); Red Cell Distribution Width 14.4 % (12.1-15.2)
[2023-08-09 06:48] LABS: Albumin/Globulin Ratio 0.9 (1.1-1.8); Anion Gap 9.6 mEq/L (5.0-15.0); Bilirubin Direct 0.2 mg/dL (0-0.2); Bilirubin Indirect, Calculated 0.4 mg/dL (0.2-0.8); Bilirubin Total 0.6 mg/dL (0.2-1.0); Globulin 3.2 g/dL (2.3-3.5); Potassium 3.6 mEq/L (3.5-5.1); Protein, Total 6.2 g/dL (6.4-8.2)
[2023-08-09] MEDS: ONDANSETRON 4 MG/2 ML VIAL IV PRN (14:10)
[2023-08-09] MEDS: FAMOTIDINE 20 MG TAB PO SCH (14:57)
[2023-08-09] MEDS ORDERED: HOME MED 1 EA UNK (Meclizine Hcl [Meclizine Hcl] 25 MG Tablet) PO PRN (18:12)
--- NOTE | 2023-08-09 18:15 | P.DS ---
Admission Date: 08/08/23 Discharge Date: 08/09/23 Disposition: ROUTINE DISCHARGE Discharge Condition: FAIR Brief History of Present Illness: GRACE HAS ABDOMEN PAIN OFF AND ON. SHE ALSO GETS DIZZY OFF AND ON. SHE DENIES DEPRESSION. HER CT SCAN IS TOTALLY NORMAL WITH NORMAL WBC COUNT. SHE IS TENDER IN LLQ BUT IT IS MILD. I AM SUSPECTING SOME ANXIETY SOMEHOW GIVING RISE TO IBS AND HEAD SS. MRI DONE PENDING. I ADDED ELAVIL AND FAMOTIDINE FOR GERD. SHE WI LL GO HOME AND FU AT OFFICE. MRI REPORT TO WATCH BEFORE DC. Vital Signs/Physical Exam: Temp Pulse Resp BP Pulse Ox 96.3 F L 58 15 178/72 H 94 08/09/23 16:00 08/09/23 12:00 08/09/23 16:00 08/09/23 16:00 08/09/23 16:00 Laboratory Data at Discharge: WBC 5.20 thou/uL (4.3-10.9) 08/09/23 06:03 Hgb 12.8 g/dL (12.0-15.0) 08/09/23 06:03 Hct 37.6 % (36.0-45.0) 08/09/23 06:03 Plt Count 166 thou/uL (152-406) 08/09/23 06:03 Sodium 139 mEq/L (136-145) 08/09/23 06:03 Potassium 3.6 mEq/L (3.5-5.1) D 08/09/23 06:03 BUN 17 mg/dL (7-18) 08/09/23 06:03 Creatinine 0.90 mg/dL (0.55-1.02) 08/09/23 06:03 Glucose 90 mg/dL (74-106) 08/09/23 06:03 Total Bilirubin 0.6 mg/dL (0.2-1.0) 08/09/23 06:03 AST 13 U/L (15-37) L 08/09/23 06:03 ALT 13 U/L (13-56) 08/09/23 06:03 Alkaline Phosphatase 83 U/L (45-117) 08/09/23 06:03 Home Medications: Meclizine HCl 1 tab PO TID PRN 06/20/19 Atorvastatin Calcium 20 mg PO DAILY 02/24/24 Amitriptyline HCl 10 mg PO DAILY AT SUPPER #30 08/09/23 Famotidine [Pepcid*] 20 mg PO BID #60 tab 08/09/23 levETIRAcetam [Levetiracetam] 250 mg PO BID 08/09/23 New Medications: Amitriptyline HCl 10 mg PO DAILY AT SUPPER #30 Famotidine [Pepcid*] 20 mg PO BID #60 tab Followup: Franco Davis MD [Primary Care Provider] -
--- NOTE | 2023-08-09 18:40 | RAD REPORT ---
EXAM DESCRIPTION: MRI - Brain W/Wo Cont - 08/09/2023 6:00 pm CLINICAL HISTORY: dizzy , ams COMPARISON: Noncontrast head CT 07/21/2023 TECHNIQUE: Multiplanar multisequence MRI of the brain performed before and after intravenous adminis tration of 19 mL MultiHance. FINDINGS: Motion artifact somewhat limits evaluation, despite attempts at repeat imaging. No evidence of acute infarct or other diffusion signal abnormality. No evidence of acute intracranial hemorrhage or abnormal extra-axial fluid collections. Mild diffuse parenchymal volume loss. Ventricular caliber otherwise within normal for age. Midline st ructures are unremarkable. Scattered subcortical and deep white matter T2/FLAIR hyperintensities, nonspecific, but suggestive of chronic small vessel ischemic changes. No mass effect or midline shift. Major vascular flow voids are preserved. Mastoid air cells and paranasal sinuses are clear. IMPRESSION: No acute intracranial process. No evidence of ventriculomegaly or mass effect. Mild nonspecific deep white matter signal abnormalities, suggest mild chronic small vessel ischemic c hanges.
[2023-08-09] MEDS ORDERED: MECLIZINE HCL 12.5 MG TAB PO PRN (18:47)
[2023-08-09 20:53] VITALS: BP 136/76; TEMP 96.9
[2023-08-09] MEDS ORDERED: levETIRAcetam 500 MG TAB PO SCH (21:00)
[2023-08-09] MEDS ORDERED: LEVETIRACETAM 250 MG PO SCH (21:00)
[2023-08-10] MEDS ORDERED: ATORVASTATIN CALCIUM 20 MG PO SCH (09:00)
[2023-08-10] MEDS ORDERED: ATORVASTATIN 20 MG TAB PO SCH (09:00)
== END 2023-08-09 20:15 | disposition home or self-care (01) ==
LOC: ER 16:19 → ERHOLD 16:55 → 4TH 19:54
PROVIDERS: ADMIT Internal Medicine; ATTEND Internal Medicine
DX: R10.32 Left lower quadrant pain (principal); K21.9 Gastro-esophageal reflux disease without esophagitis; K57.92 Diverticulitis of intestine, part unspecified, without perforation or abscess without bleeding; K58.9 Irritable bowel syndrome, unspecified; R42 Dizziness and giddiness; R11.2 Nausea with vomiting, unspecified; F41.9 Anxiety disorder, unspecified; N18.2 Chronic kidney disease, stage 2 (mild); E66.01 Morbid (severe) obesity due to excess calories; Z68.32 Body mass index [BMI] 32.0-32.9, adult; Z23 Encounter for immunization
CPT/HCPCS: 85025 ×2; 80048 ×2; 36415; 80076 ×2; 81003; 74177; 71046; 90471 ×2; 70553; 90732; Q9967; A9577; Q2035; J1650 ×2; J2405; J0744 ×2; 93005; G0378